=== PATIENT | male | born 1965 | race African-American/Black ===

== ENCOUNTER 2016-09-30 15:27 | Emergency (ER) | payer MEDICAID, OTHER ==
[~2016-09-30] VITALS: Ht 170.2 cm; Wt 104.0 kg
[~2016-09-30 15:27] MED LIST: INDO50CA PO; PRED20 PO
[2016-09-30 15:29] VITALS: BP 144/104; PULSE 71; RESP 17; TEMP 98; O2SAT 99
--- NOTE | 2016-09-30 16:31 | PD ---
HPI Chief Complaint: Pain: Acute or Chronic Time Seen by Provider: 16:30 Travel History International Travel<30 days: No Contact w/Intl Traveler<30days: No Traveled to known affect area: No PFSH Past Medical History Hx Anticoagulant Therapy: No Blood Disorders: No Heart Rhythm Problems: No Cancer: No Cardiac Catheterization: No Cardiovascular Problems: Yes High Cholesterol: No Congestive Heart Failure: No Cerebrovascular Accident: Yes Diabetes: No Diminished Hearing: No GERD: Yes Gout: Yes Genitourinary: No Hypertension: No Immune Disorder: No Implanted Vascular Access Dvce: No Musculoskeletal: No Neurologic: No Psychiatric: No Reproductive: No Respiratory: Yes Immunizations Current: Yes Myocardial Infarction: No Renal Failure: No Seizures: No Tetanus Vaccination: > 5 Years Influenza Vaccination: No ?: Not Past Surgical History Surgical History: No Previous Surgery Coronary Artery Bypass Graft: No Other Surgery: No Social History Alcohol Use: No Tobacco Use: No Substance Use: No Allergies-Medications (Allergen,Severity, Reaction): Coded Allergies: No Known Allergies (Verified , 09/30/16) Reported Meds & Prescriptions Reported Meds & Active Scripts Active Data Data Last Documented VS Vital Signs Date Time Temp Pulse Resp B/P Pulse Ox O2 Delivery O2 Flow Rate FiO2 09/30/16 15:29 98.0 71 17 144/104 99 Orders Ibuprofen (Motrin) (09/30/16 16:45) Prednisone (Deltasone) (09/30/16 16:45) Pantoprazole (Protonix) (09/30/16 16:45) Carolyn Abdi Sep 30, 2016 16:30
[2016-09-30] MEDS ORDERED: PRED20 PO (16:39)
[2016-09-30] MEDS ORDERED: ZANT300T PO (16:39)
[2016-09-30] MEDS ORDERED: MOBI15TA PO (16:39)
--- NOTE | 2016-09-30 16:39 | PD ---
HPI Chief Complaint: Pain: Acute or Chronic Time Seen by Provider: 16:34 Travel History International Travel<30 days: No Contact w/Intl Traveler<30days: No Traveled to known affect area: No History of Present Illness HPI 51-year-old male complains of left big toe pain. Patient states that the pain started 4 days ago. Patient states the pain is sharp pain localized to the face left big toe. Patient denies any pain radiation. Patient denies any injury. Patient has history of gout and has history of recurrent gout with left great toe pain in the past. Patient denies any fever chills. Patient denies any other injury. On a scale from 1-10 the pain is an 8. PFSH Past Medical History Hx Anticoagulant Therapy: No Blood Disorders: No Heart Rhythm Problems: No Cancer: No Cardiac Catheterization: No Cardiovascular Problems: Yes High Cholesterol: No Congestive Heart Failure: No Cerebrovascular Accident: Yes Diabetes: No Diminished Hearing: No GERD: Yes Gout: Yes Genitourinary: No Hypertension: No Immune Disorder: No Implanted Vascular Access Dvce: No Musculoskeletal: No Neurologic: No Psychiatric: No Reproductive: No Respiratory: Yes Immunizations Current: Yes Myocardial Infarction: No Renal Failure: No Seizures: No Tetanus Vaccination: > 5 Years Influenza Vaccination: No ?: Not Past Surgical History Surgical History: No Previous Surgery Coronary Artery Bypass Graft: No Other Surgery: No Social History Alcohol Use: No Tobacco Use: No Substance Use: No Allergies-Medications (Allergen,Severity, Reaction): Coded Allergies: No Known Allergies (Verified , 09/30/16) Reported Meds & Prescriptions Reported Meds & Active Scripts Active Review of Systems General / Constitutional: No: Fever Eyes: No: Visual changes HENT: No: Headaches Cardiovascular: No: Chest Pain or Discomfort Respiratory: No: Shortness of Breath Gastrointestinal: No: Abdominal Pain Genitourinary: No: Dysuria Musculoskeletal: Positive: Pain Skin: No Rash Neurologic: No: Weakness Psychiatric: No: Depression Endocrine: No: Polydipsia Hematologic/Lymphatic: No: Easy Bruising Physical Exam Narrative GENERAL: Well-nourished, well-developed patient. SKIN: Warm and dry. HEAD: Normocephalic. EYES: No scleral icterus. No injection or drainage. NECK: Supple, trachea midline. No JVD or lymphadenopathy. CARDIOVASCULAR: Regular rate and rhythm without murmurs, gallops, or rubs. RESPIRATORY: Breath sounds equal bilaterally. No accessory muscle use. GASTROINTESTINAL: Abdomen soft, non-tender, nondistended. MUSCULOSKELETAL: Moderate tenderness and palpation the MTP joint left great toe. Mild soft tissue swelling noted. No redness no heat. Sensory motor function distally intact. BACK: Nontender without obvious deformity. No CVA tenderness. Motor Data Data Last Documented VS Vital Signs Date Time Temp Pulse Resp B/P Pulse Ox O2 Delivery O2 Flow Rate FiO2 09/30/16 15:29 98.0 71 17 144/104 99 Orders Ibuprofen (Motrin) (09/30/16 16:45) Prednisone (Deltasone) (09/30/16 16:45) Pantoprazole (Protonix) (09/30/16 16:45) [facility] Medical Decision Making Medical Screen Exam Complete: Yes Emergency Medical Condition: Yes Differential Diagnosis Differential diagnosis including gouty arthritis, sprain, fracture, dislocation. Narrative Course 51-year-old male with left great toe pain. History of gout. Most likely gouty arthritis. Patient does not want IM injection. Motrin 600 mg by mouth. Prednisone 20 mg by mouth. Protonix 20 mg by mouth. Diagnosis Primary Impression: Acute gouty arthritis Patient Instructions: General Instructions Additional Instructions: Take medications as directed. Follow-up with personal physician. Return if persistent problem or worse. Med/Other Pt SpecificInfo: Prescription(s) given Scripts Ranitidine (Zantac)300 Mg Itc175 Mg PO DAILY #10 TAB Ref 0 Prov:Duane Juares MD 09/30/16 Prednisone 20 Mg Tab20 Mg PO BID #10 TAB Prov:Duane Juares MD 09/30/16 Meloxicam (Mobic)15 Mg Tab15 Mg PO DAILY #20 TAB Prov:Duane Juares MD 09/30/16 Disposition: 01 DISCHARGE HOME Condition: Stable Duane Juares MD Sep 30, 2016 16:39
[2016-09-30] MEDS ORDERED: PANTOPRAZOLE SOD 20 MG DELAYED RELEASE TAB PO ONE (16:45)
[2016-09-30] MEDS ORDERED: predniSONE 20 MG TAB PO ONE (16:45)
[2016-09-30] MEDS ORDERED: IBUPROFEN 600 MG TAB PO ONE (16:45)
== END 2016-09-30 17:38 | disposition home or self-care (01) ==
LOC: PHEFT 15:27
DX: M10.00 Idiopathic gout, unspecified site (principal)
CPT/HCPCS: 99283; J7512

== ENCOUNTER 2016-12-24 17:09 | Emergency (ER) | payer OTHER ==
[~2016-12-24] VITALS: Ht 167.6 cm; Wt 106.9 kg
[~2016-12-24 17:09] MED LIST changes: -INDO50CA PO; +MOBI15TA PO; +ZANT300T PO
[2016-12-24 17:20] VITALS: BP_SYST 164; BP_SYST 172; BP_DIAS 120; BP_DIAS 199; PULSE 95; RESP 16; TEMP 98.4; O2SAT 98
--- NOTE | 2016-12-24 18:12 | PD ---
HPI Chief Complaint: ENT Complaint Time Seen by Provider: 17:57 Travel History International Travel<30 days: No Contact w/Intl Traveler<30days: No Traveled to known affect area: No History of Present Illness HPI 51-year-old male with history of previous CVA, presents to the ER today because he states that the last 2-3 days he has been having nasal congestion, not feeling well, sinus pressure, headaches, and jaw pain which is worse on the left compared to the right although he has bilateral jaw pain. He states it hurts to open his mouth. He has also been having throat soreness. He denies any drooling, trouble swallowing, fevers, or any other symptoms. He does not know any sick contacts. He denies any injuries. Modifying Factors: None Associated Signs & Symptoms: Headaches, sinus pressure, jaw pain Risk Factors: None PFSH Past Medical History Hx Anticoagulant Therapy: No Blood Disorders: No Heart Rhythm Problems: No Cancer: No Cardiac Catheterization: No Cardiovascular Problems: Yes High Cholesterol: No Congestive Heart Failure: No Cerebrovascular Accident: Yes Diabetes: No Diminished Hearing: No GERD: Yes Gout: Yes Genitourinary: No Hypertension: No Immune Disorder: No Implanted Vascular Access Dvce: No Musculoskeletal: No Neurologic: No Psychiatric: No Reproductive: No Respiratory: Yes Immunizations Current: Yes Myocardial Infarction: No Renal Failure: No Seizures: No Tetanus Vaccination: > 5 Years Influenza Vaccination: No Past Surgical History Surgical History: No Previous Surgery Coronary Artery Bypass Graft: No Other Surgery: No Social History Alcohol Use: No Tobacco Use: No Substance Use: No Allergies-Medications (Allergen,Severity, Reaction): Coded Allergies: No Known Allergies (Verified , 12/24/16) Reported Meds & Prescriptions Reported Meds & Active Scripts Active No Active Prescriptions or Reported Medications Review of Systems Except as stated in HPI: all other systems reviewed are Neg Physical Exam Narrative GENERAL: Well-developed middle age -[place] male patient currently in moderate distress. Awake and oriented 3. SKIN: Focused skin assessment warm/dry. HEAD: Atraumatic. Normocephalic. Tenderness on palpation of the TMJ area more pronounced on the left than the right. EYES: Pupils equal and round. No scleral icterus. No injection or drainage. ENT: No nasal bleeding or discharge. Mucous membranes pink and moist. Mild pharyngeal erythema. No exudates. Tonsillar pillars are symmetrical. EARS: Bilateral pinnae and external canals appear within normal limits. Bilateral tympanic membranes without erythema, dullness or perforation. NECK: Trachea midline. No JVD. CARDIOVASCULAR: Regular rate and rhythm. No murmur appreciated. RESPIRATORY: No accessory muscle use. Clear to auscultation. Breath sounds equal bilaterally. GASTROINTESTINAL: Abdomen soft, non-tender, nondistended. Hepatic and splenic margins not palpable. MUSCULOSKELETAL: No obvious deformities. No clubbing. No cyanosis. No edema. NEUROLOGICAL: Awake and alert. No obvious cranial nerve deficits. Motor grossly within normal limits. Normal speech. PSYCHIATRIC: Appropriate mood and affect; insight and judgment normal. Data Data Last Documented VS Vital Signs Date Time Temp Pulse Resp B/P Pulse Ox O2 Delivery O2 Flow Rate FiO2 12/24/16 18:40 81 20 142/72 94 Room Air 12/24/16 17:20 98.4 Orders Group A Rapid Strep Screen (12/24/16 17:57) Influenzae A/B Antigen (12/24/16 17:57) Soft Tissue Neck (12/24/16 ) Facial Bones - Comp([id number]) (12/24/16 ) Strep Culture (Group A) (12/24/16 18:00) MDM Medical Decision Making Medical Screen Exam Complete: Yes Emergency Medical Condition: Yes Medical Record Reviewed: Yes Differential Diagnosis Jaw pain, headache, sinus pressuresinusitis versus TMJ versus jaw dislocation versus otitis media Narrative Course X-rays ordered for evaluation of mandibular/TMJ pain. Influenza and rapid strep negative. Physician Communication Physician Communication Case signed out to Dr. Wren at 7 PM pending x-rays. Scripts No Active Prescriptions or Reported Meds Condition: Stable Dasha tOt MD Dec 24, 2016 18:12
[2016-12-24 18:40] VITALS: BP 142/72; PULSE 81; RESP 20; O2SAT 94
[2016-12-24 19:15] VITALS: BP 150/106; PULSE 82; RESP 16; O2SAT 99
--- NOTE | 2016-12-24 19:23 | PD ---
Physical Exam Date Seen by Provider: Dec 24, 2016 Time Seen by Provider: 19:21 Narrative accepted in transfer of care from Dr Ott GENERAL: Well-developed well-nourished male in no acute distress no respiratory distress SKIN: Warm and dry. HEAD: Normocephalic. EYES: No scleral icterus. No injection or drainage. ENT: Mucous members moist airway is patent; bilateral frontal and maxillary sinus tenderness to percussion some; no malocclusion. NECK: Supple, trachea midline. No JVD or lymphadenopathy. CARDIOVASCULAR: Regular rate and rhythm without murmurs, gallops, or rubs. RESPIRATORY: Breath sounds equal bilaterally. No accessory muscle use. GASTROINTESTINAL: Abdomen soft, non-tender, nondistended. MUSCULOSKELETAL: No cyanosis, or edema. BACK: Nontender without obvious deformity. No CVA tenderness. Data Data Last Documented VS Vital Signs Date Time Temp Pulse Resp B/P Pulse Ox O2 Delivery O2 Flow Rate FiO2 12/24/16 20:22 82 17 160/124 98 Room Air 12/24/16 17:20 98.4 Orders Group A Rapid Strep Screen (12/24/16 17:57) Influenzae A/B Antigen (12/24/16 17:57) Soft Tissue Neck (12/24/16 ) Facial Bones - Comp([id number]) (12/24/16 ) Strep Culture (Group A) (12/24/16 18:00) Ibuprofen (Motrin) (12/24/16 20:00) Clonidine (Catapres) (12/24/16 20:30) MDM Medical Record Reviewed: Yes Supervised Visit with [facility]U: No Interpretation(s) Last Impressions Soft Tissue Neck X-Ray 12/24/16 0000 Signed Impressions: Service Date/Time: Saturday, December 24, 2016 18:45 - CONCLUSION: Radiographic appearance of the soft tissues of the neck is within normal limits. Cassius Lamas MD Facial Bones X-Ray 12/24/16 0000 Signed Impressions: Service Date/Time: Saturday, December 24, 2016 18:46 - CONCLUSION: 1. No facial fracture. No perceptible cortical destruction. 2. Numerous missing and/or broken teeth. 3. Left greater than right maxillary sinus disease suspected. I also believe there is bilateral sphenoid sinus disease. Cassius Lamas MD Differential Diagnosis accepted in transfer of care from Dr Ott; please refer to her dictation Narrative Course accepted in transfer of care from Dr Ott; for follow up of pending imaging of the mandible At 7:50 PM patient informed of imaging results in stable for outpatient management. At 8:22 PM at time of discharge patient obtain last vital signs prior to dispositioning the patient and noted patient to again have elevated blood pressure that was noted upon patient's initial arrival the blood pressure improved to a more normal range while in the emergency department; patient will be given clonidine 0.1 mg. Patient refusing any medication for elevated blood pressure she states every time he comes to the emergency department if becomes markedly elevated and his blood pressure normalizes as soon as he leaves emergency department. Patient states she was just seen by his primary care provider and his blood pressure is normal and he will follow-up with his primary care provider tomorrow did not take any blood pressure medication while he is here in the emergency department and no reporting of sudden onset worst ever headache visual disturbance chest pain palpitations shortness of breath or focal upper or lower extremity numbness tingling or weakness altered mentation altered speech or visual disturbance. Patient again offered to manage his blood pressure here in the emergency department to give him a dose of medication and that her writing for as needed clonidine patient again refuses this. Benefit of being on blood pressure medication versus risk for and/or in disease such as stroke [place] renal failure discussed with patient. Again patient refuses to take blood pressure medication. Review of medical records does indicate that when he visits the emergency department he does have quite elevated blood pressure. During his visit his blood pressure did fall into more normal range while resting comfortably. BP rechecked --remains very elevated again risks discussed and patient agrees to taking medication for elevated BP. @ 8:39 PM patient now refusing again to take any medication for blood pressure management. Patient will sign out AGAINST MEDICAL ADVICE. Diagnosis Primary Impression: Sinusitis Qualified Code: J01.90 - Acute sinusitis, recurrence not specified, unspecified location Additional Impression: HTN (hypertension) Qualified Code: I10 - Essential hypertension Referrals: Primary Care Physician call for appointment Patient Instructions: General Instructions Additional Instruction: Complete course of antibiotic as prescribed May use as tolerated Afrin nasal decongestion spray 1 spray to each near up to 2 times daily for up to 3 days however avoid ongoing use to avoid rebound congestion May use as tolerated acetaminophen/Tylenol every 4 hours for mild pain or for fever 100.4F or greater May use ibuprofen/Advil/Motrin every 6-8 hours as needed for pain associated with inflammation for fever 100.4F or greater May use [id number] Robitussin or Mucinex for congestion Follow-up with her primary care provider Return to the emergency department as needed Med/Other Pt SpecificInfo: Prescription(s) given Scripts Amoxicillin-Clavulanate (Augmentin)875-125 Mg Tab1 Tab PO BID 10 Days Ref 0 Prov:Lucina Wren MD 12/24/16 Disposition: 01 DISCHARGE HOME Condition: Stable Lucina Wren MD Dec 24, 2016 19:23
--- NOTE | 2016-12-24 19:24 | RADHPO ---
EXAM DATE/TIME: 12/24/2016 18:45 [facility] COMPARISON: No previous studies available for comparison. INDICATIONS : Sore throat. MEDICAL HISTORY : None. SURGICAL HISTORY : None. ENCOUNTER: Initial ACUITY: 1 day PAIN SCORE: 5/10 LOCATION: Bilateral neck FINDINGS: Two view examination of the soft tissues of the neck demonstrates the hypopharyngeal airway to have a grossly normal configuration. The trachea is midline. No radiopaque foreign bodies are seen. CONCLUSION: Radiographic appearance of the soft tissues of the neck is within normal limits. Cassius Lamas MD on December 24, 2016 at 19:22 Board Certified Radiologist. This report was verified electronically.
--- NOTE | 2016-12-24 19:34 | RADHPO ---
EXAM DATE/TIME: 12/24/2016 18:46 [facility] COMPARISON: No previous studies available for comparison. INDICATIONS : Unable to open mouth, jaw pain. MEDICAL HISTORY : None. SURGICAL HISTORY : None. ENCOUNTER: Initial ACUITY: 2 days PAIN SCORE: 5/10 LOCATION: Bilateral facial FINDINGS: No facial fracture demonstrated. Patient has numerous missing and broken teeth. No malalignment demon strated of the temporomandibular joints. There is partial opacification of the bilateral maxillary sinuses, left worse than right, and bilater al sphenoid air cells. Right frontal air cells are hypoplastic. CONCLUSION: 1. No facial fracture. No perceptible cortical destruction. 2. Numerous missing and/or broken teeth. 3. Left greater than right maxillary sinus disease suspected. I also believe there is bilateral sphen oid sinus disease. Cassius Lamas MD on December 24, 2016 at 19:30 Board Certified Radiologist. This report was verified electronically.
[2016-12-24] MEDS ORDERED: AUGM875T3 PO (19:53)
[2016-12-24] MEDS ORDERED: IBUPROFEN 800 MG TAB PO ONE (20:00)
[2016-12-24 20:10] VITALS: BP 177/124; PULSE 88; RESP 16; O2SAT 98
[2016-12-24 20:22] VITALS: BP 160/124; PULSE 82; RESP 17; O2SAT 98
[2016-12-24] MEDS ORDERED: cloNIDine HCL 0.1 MG TAB PO ONE (20:30)
[2016-12-24 20:43] VITALS: BP 195/124
== END 2016-12-24 20:47 | disposition left against medical advice (07) ==
LOC: PHED 17:09
DX: J01.90 Acute sinusitis, unspecified (principal); Z86.73 Personal history of transient ischemic attack (TIA), and cerebral infarction without residual deficits; K21.9 Gastro-esophageal reflux disease without esophagitis; R03.0 Elevated blood-pressure reading, without diagnosis of hypertension
CPT/HCPCS: 70150; 70360; 87081; 87804; 87880; 99284

== ENCOUNTER 2016-12-27 21:35 | Emergency (ER) | payer OTHER ==
[~2016-12-27] VITALS: Ht 167.6 cm; Wt 106.3 kg
[~2016-12-27 21:35] MED LIST changes: +AUGM875T3 PO; -MOBI15TA PO; -PRED20 PO; -ZANT300T PO
[2016-12-27 21:42] VITALS: BP 170/133; PULSE 80; RESP 18; TEMP 97.9; O2SAT 96
[2016-12-27 22:30] VITALS: BP 173/118; PULSE 77; RESP 18; O2SAT 98
[2016-12-27] MEDS ORDERED: HYDROCHLOROTHIAZIDE 25 MG TAB PO ONE (22:45)
--- NOTE | 2016-12-27 22:45 | PD ---
HPI . Headache Chief Complaint: Abnormal Results Time Seen by Provider: 22:27 Travel History International Travel<30 days: No Contact w/Intl Traveler<30days: No Traveled to known affect area: No History of Present Illness HPI Patient presents stating that his blood pressure is elevated and that he has a headache and that he would like to get started on some blood pressure medication. The patient was seen here 2 days ago with similar symptoms. He was found to have an elevated blood pressure and was given a dose of clonidine. Dr. Wren plan to prescribe him blood pressure medication but the patient refused stating that he was see his doctor. The patient reports that his blood pressure is always elevated when he comes to the emergency department but is normal when he sees his doctor in the office. He reports a recent checkup with a normal blood pressure. However, as continued to have a headache. He would now like to start on some blood pressure medication. PFSH Past Medical History Hx Anticoagulant Therapy: No Blood Disorders: No Heart Rhythm Problems: No Cancer: No Cardiac Catheterization: No Cardiovascular Problems: Yes High Cholesterol: No Congestive Heart Failure: No Cerebrovascular Accident: Yes Diabetes: No Diminished Hearing: No GERD: Yes Gout: Yes Genitourinary: No Heparin Induced Thrombocytopen: No Hypertension: No Immune Disorder: No Implanted Vascular Access Dvce: No Musculoskeletal: No Neurologic: No Psychiatric: No Reproductive: No Respiratory: Yes Immunizations Current: Yes Myocardial Infarction: No Renal Failure: No Seizures: No Tetanus Vaccination: > 5 Years Influenza Vaccination: No ?: Not Past Surgical History Coronary Artery Bypass Graft: No Other Surgery: No Family History Family Myocardial Infarction: Yes Social History Alcohol Use: No Tobacco Use: No Substance Use: No Allergies-Medications (Allergen,Severity, Reaction): Coded Allergies: No Known Allergies (Verified , 12/27/16) Reported Meds & Prescriptions Reported Meds & Active Scripts Active Augmentin (Amoxicillin-Clavulanate) 875-125 Mg Tab 1 Tab PO BID 10 Days Review of Systems Except as stated in HPI: all other systems reviewed are Neg HENT: Positive: Headaches Cardiovascular: No: Chest Pain or Discomfort Respiratory: No: Shortness of Breath Gastrointestinal: No: Nausea, Vomiting Musculoskeletal: No: Edema Physical Exam Narrative GENERAL: Awake and alert and in no acute distress. SKIN: Warm and dry. HEAD: Atraumatic. Normocephalic. Positive scalp tenderness. EYES: Pupils equal and round. Extraocular movements are intact. NECK: Trachea midline. Neck is supple. CARDIOVASCULAR: Regular rate and rhythm. RESPIRATORY: No accessory muscle use. MUSCULOSKELETAL: No obvious deformities. No edema. NEUROLOGICAL: Awake and alert. No obvious cranial nerve deficits. Motor grossly within normal limits. Normal speech. PSYCHIATRIC: Appropriate mood and affect; insight and judgment normal. Data Data Last Documented VS Vital Signs Date Time Temp Pulse Resp B/P Pulse Ox O2 Delivery O2 Flow Rate FiO2 12/27/16 22:30 77 18 173/118 98 Room Air 12/27/16 21:42 97.9 Orders Hydrochlorothiazide (Hydrodiuril) (12/27/16 22:45) [facility] Medical Decision Making Medical Screen Exam Complete: Yes Emergency Medical Condition: Yes Medical Record Reviewed: Yes (the patient was seen here 2 days ago for headache and was noted to have elevated blood pressure.) Differential Diagnosis Differential diagnosis of headache includes but is not limited to migraine, muscle contraction headache, brain tumor, brain bleed Narrative Course Patient presents complaining with continued headache and elevated blood pressure for the last 2 days. He would like to start on blood pressure medication. He does not have any signs or symptoms suggestive of hypertensive emergency as chest pain, encephalopathy, acute peripheral edema, shortness of breath. His blood pressure is elevated again tonight. I will start him on HCTZ. Diagnosis Primary Impression: Elevated blood pressure reading Patient Instructions: General Instructions, Hypertension (DC) Med/Other Pt SpecificInfo: Prescription(s) given Scripts Hydrochlorothiazide 25 Mg Tab25 Mg PO DAILY #30 TAB Ref 0 Prov:Yuridia Parker MD 12/27/16 Disposition: 01 DISCHARGE HOME Condition: Stable Yuridia Parker MD Dec 27, 2016 22:45
[2016-12-27] MEDS ORDERED: HYDR25TA5 PO (22:53)
[2016-12-27 23:17] VITALS: BP 174/102; PULSE 72; RESP 18; O2SAT 98
== END 2016-12-27 23:24 | disposition home or self-care (01) ==
LOC: PHED 21:35
DX: R03.0 Elevated blood-pressure reading, without diagnosis of hypertension (principal)
CPT/HCPCS: 99283

== ENCOUNTER 2017-02-10 15:02 | Observation (INO) | payer OTHER ==
[2017-02-10] VITALS (12 sets, daily range): BP systolic 128–184; BP diastolic 83–122; PULSE 62–91; RESP 15–20; TEMP 97.8–98.6; O2SAT 94–100
[~2017-02-10] VITALS: Ht 167.6 cm; Wt 104.5 kg
[~2017-02-10 15:02] MED LIST changes: +HYDR25TA5 PO
--- NOTE | 2017-02-10 15:20 | PD ---
HPI Chief Complaint: Chest Pain Time Seen by Provider: 15:10 Travel History International Travel<30 days: No Contact w/Intl Traveler<30days: No Traveled to known affect area: No History of Present Illness HPI This is a 51-year-old male with history of hypertension and presents for evaluation of chest pain. Symptoms initially started 2 days ago. Pain is a sharp substernal pain which has been constant since yesterday evening. He reports that he was unable to sleep all night because of the pain. The pain is worse with exertion and also with deep inspiration. He went to latter day today and the pain is persistent which prompted evaluation. He denies cough or congestion, shortness of breath, recent travel or recent surgery, history of DVT or PE, recent leg swelling. No personal history of coronary artery disease. He does have hypertension and he notes that his blood pressure has been elevated over the past few months. His primary care physician is Dr. Melchor. No other complaints. PFSH Past Medical History Hx Anticoagulant Therapy: No Blood Disorders: No Heart Rhythm Problems: No Cancer: No Cardiac Catheterization: No Cardiovascular Problems: Yes High Cholesterol: No Congestive Heart Failure: No Cerebrovascular Accident: Yes Diabetes: No Diminished Hearing: No GERD: Yes Gout: Yes Genitourinary: No Heparin Induced Thrombocytopen: No Hypertension: No Immune Disorder: No Implanted Vascular Access Dvce: No Musculoskeletal: No Neurologic: No Psychiatric: No Reproductive: No Respiratory: Yes Immunizations Current: Yes Myocardial Infarction: No Renal Failure: No Seizures: No Past Surgical History Coronary Artery Bypass Graft: No Other Surgery: No Social History Alcohol Use: No Tobacco Use: No Substance Use: No Allergies-Medications (Allergen,Severity, Reaction): Coded Allergies: No Known Allergies (Verified , 12/27/16) Reported Meds & Prescriptions Reported Meds & Active Scripts Active Hydrochlorothiazide 25 Mg Tab 25 Mg PO DAILY Augmentin (Amoxicillin-Clavulanate) 875-125 Mg Tab 1 Tab PO BID 10 Days Review of Systems Except as stated in HPI: all other systems reviewed are Neg Physical Exam Narrative GENERAL: Pleasant well-developed well-nourished male in no acute distress. SKIN: Warm and dry. HEAD: Atraumatic. Normocephalic. EYES: Pupils equal and round. No scleral icterus. No injection or drainage. ENT: No nasal bleeding or discharge. Mucous membranes pink and moist. NECK: Trachea midline. No JVD. CARDIOVASCULAR: Regular rate and rhythm. No murmur appreciated. RESPIRATORY: No accessory muscle use. Clear to auscultation. Breath sounds equal bilaterally. GASTROINTESTINAL: Abdomen soft, non-tender, nondistended. Hepatic and splenic margins not palpable. MUSCULOSKELETAL: No obvious deformities. No clubbing. No cyanosis. No edema. NEUROLOGICAL: Awake and alert. No obvious cranial nerve deficits. Motor grossly within normal limits. Normal speech. PSYCHIATRIC: Appropriate mood and affect; insight and judgment normal. Data Data Last Documented VS Vital Signs Date Time Temp Pulse Resp B/P Pulse Ox O2 Delivery O2 Flow Rate FiO2 02/10/17 16:26 76 16 184/107 100 Nasal Cannula 2 02/10/17 15:23 98.6 Orders Electrocardiogram (02/10/17 ) Basic Metabolic Panel (Bmp) (02/10/17 15:17) Ckmb (Isoenzyme) Profile (02/10/17 15:17) Complete Blood Count With Diff (02/10/17 15:17) D-Dimer (02/10/17 15:17) Magnesium (Mg) (02/10/17 15:17) Prothrombin Time / Inr (Pt) (02/10/17 15:17) Act Partial Throm Time (Ptt) (02/10/17 15:17) Troponin I (02/10/17 15:17) Chest, Single Ap (02/10/17 15:17) Ecg Monitoring (02/10/17 15:17) Bilateral Bp Monitoring (02/10/17 15:17) Iv Access Insert/Monitor (02/10/17 15:17) Oximetry (02/10/17 15:17) Oxygen Administration (02/10/17 15:17) Aspirin Chew (Aspirin Chew) (02/10/17 15:30) Sodium Chloride 0.9% Flush (Ns Flush) (02/10/17 15:30) Nitroglycerin Sl (Nitrostat Sl) (02/10/17 15:30) CKMB (02/10/17 15:30) CKMB% (02/10/17 15:30) Labs Laboratory Tests Test 02/10/17 15:30 White Blood Count 3.8 TH/MM3 Red Blood Count 4.78 MIL/MM3 Hemoglobin 13.8 GM/DL Hematocrit 41.8 % Mean Corpuscular Volume 87.4 FL Mean Corpuscular Hemoglobin 28.9 PG Mean Corpuscular Hemoglobin 33.0 % Concent Red Cell Distribution Width 15.0 % Platelet Count 136 TH/MM3 Mean Platelet Volume 9.3 FL Neutrophils (%) (Auto) 53.9 % Lymphocytes (%) (Auto) 39.3 % Monocytes (%) (Auto) 4.7 % Eosinophils (%) (Auto) 1.3 % Basophils (%) (Auto) 0.8 % Neutrophils # (Auto) 2.1 TH/MM3 Lymphocytes # (Auto) 1.5 TH/MM3 Monocytes # (Auto) 0.2 TH/MM3 Eosinophils # (Auto) 0.1 TH/MM3 Basophils # (Auto) 0.0 TH/MM3 CBC Comment DIFF FINAL Differential Comment Prothrombin Time 10.8 SEC Prothromb Time International 1.0 RATIO Ratio Activated Partial 24.0 SEC Thromboplast Time D-Dimer Quantitative (PE/DVT) 0.37 MG/L FEU Sodium Level 143 MEQ/L Potassium Level 4.3 MEQ/L Chloride Level 108 MEQ/L Carbon Dioxide Level 28.1 MEQ/L Anion Gap 7 MEQ/L Blood Urea Nitrogen 13 MG/DL Creatinine 1.67 MG/DL Estimat Glomerular Filtration 53 ML/MIN Rate Random Glucose 87 MG/DL Calcium Level 9.5 MG/DL Magnesium Level 2.3 MG/DL Total Creatine Kinase 789 U/L Creatine Kinase MB 1.5 NG/ML Creatine Kinase MB % 0.2 % Troponin I LESS THAN 0.02 NG/ML MDM Medical Decision Making Medical Screen Exam Complete: Yes Emergency Medical Condition: Yes Medical Record Reviewed: Yes Interpretation(s) EKG sinus rhythm, T-wave inversions in V5 and 6. Differential Diagnosis ACS, costochondritis, pneumothorax, hemothorax, pericarditis, myocarditis, pulmonary embolism Narrative Course 51-year-old male presents with 2 days of sharp chest pain which is worse with movement and inspiration. Twelve-lead EKG was obtained. The patient states an ECG monitor and pulse oximetry. Plan is for basic lab work, chest x-ray. He begin an aspirin, nitroglycerin. He'll be monitored closely. The patient's laboratory imaging studies have been reviewed. Initial troponin is negative. Total CK is 789 with a normal MB percentage. At this point in time the plan would be to admit the patient to the chest pain center for serial cardiac enzymes and rule out purposes. Discussed with the patient who is agreeable. Procedures EKG Prior to Arrival: Yes Diagnosis Primary Impression: Chest pain Qualified Code: R07.9 - Chest pain, unspecified type Admitting Information Admitting Physician Requests: Augustine Harrison Feb 10, 2017 15:19
[2017-02-10] MEDS ORDERED: ASPIRIN 81 MG CHEW TAB PO ONE (15:30)
[2017-02-10] MEDS ORDERED: SODIUM CHLORIDE 0.9% FLUSH 10 ML FLUSH IVF PRN (15:30)
[2017-02-10] MEDS ORDERED: NITROGLYCERIN 0.4 MG SL 25 TABS/BTL SL ONE (15:30)
--- NOTE | 2017-02-10 15:35 | RADRPT ---
EXAM DATE/TIME: 02/10/2017 15:11 [facility] COMPARISON: CHEST SINGLE AP, July 06, 2015, 22:29. INDICATIONS : Chest pain. MEDICAL HISTORY : None. SURGICAL HISTORY : None. ENCOUNTER: Initial ACUITY: 1 day PAIN SCORE: 0/10 LOCATION: Bilateral chest FINDINGS: A single view of the chest demonstrates the lungs to be symmetrically aerated without evidence of mas s, infiltrate or effusion. The cardiomediastinal contours are unremarkable. Osseous structures are intact. CONCLUSION: No acute disease. Syed Wilcox MD on February 10, 2017 at 15:33 Board Certified Radiologist. This report was verified electronically.
[2017-02-10 15:45] LABS: AUTOMATED NEUTROPHIL # 2.1 TH/MM3 (1.8-7.7); BASOPHIL % 0.8 % (0.0-2.0); EOSINOPHIL # 0.1 TH/MM3 (0-0.4); EOSINOPHIL % 1.3 % (0.0-4.0); HEMATOCRIT 41.8 % (39.0-51.0); HEMO FLAGS DIFF FINAL; LYMPH % 39.3 % (9.0-44.0); LYMPHOCYTE # 1.5 TH/MM3 (1.0-4.8); MEAN CELL VOLUME 87.4 FL (80.0-100.0); MEAN CORPUSCULAR HEMOGLOBIN 28.9 PG (27.0-34.0); MONO % 4.7 % (0.0-8.0); NEUT % 53.9 % (16.0-70.0); PLATELET COUNT 136 TH/MM3 (150-450); RED BLOOD COUNT 4.78 MIL/MM3 (4.50-5.90); WHITE BLOOD COUNT 3.8 TH/MM3 (4.0-11.0)
[2017-02-10 15:56] LABS: PROTHROMBIN TIME - PATIENT 10.8 SEC (9.8-11.6)
[2017-02-10 16:35] LABS: ANION GAP 7 MEQ/L (5-15); BICARBONATE 28.1 MEQ/L (21.0-32.0); BLOOD UREA NITROGEN 13 MG/DL (7-18); CHLORIDE 108 MEQ/L (98-107); CREATINE KINASE 789 U/L (39-308); GLOMERULAR FILTRATION RATE 53 ML/MIN (>89); MAGNESIUM 2.3 MG/DL (1.5-2.5); SODIUM (NA) 143 MEQ/L (136-145)
[2017-02-10 16:37] LABS: POTASSIUM 4.3 MEQ/L (3.5-5.1)
[2017-02-10 16:49] LABS: CKMB 1.5 NG/ML (0.5-3.6)
[2017-02-10] MEDS ORDERED: ACETAMINOPHEN 500 MG CPLT PO PRN (17:00)
[2017-02-10] MEDS ORDERED: ONDANSETRON HCL 4 MG/2 ML VIAL IV PRN (17:00)
[2017-02-10] MEDS ORDERED: SODIUM CHLORIDE 0.9% FLUSH 10 ML FLUSH IV FLUSH PRN (17:00)
[2017-02-10] MEDS ORDERED: AMLO5TAB2 PO (19:12)
[2017-02-10 19:30] LABS: CREATINE KINASE 712 U/L (39-308)
[2017-02-10 19:44] LABS: CKMB 1.4 NG/ML (0.5-3.6)
[2017-02-10] MEDS ORDERED: amLODIPine BESYLATE 5 MG TAB PO ONE (20:30)
[2017-02-10] MEDS: SODIUM CHLORIDE 0.9% FLUSH 10 ML FLUSH IV FLUSH SCH (20:59)
--- NOTE | 2017-02-10 21:29 | EKG ---
Date Performed: 02/10/2017 Time Performed: 18:46:30 PTAGE: 51 years EKG: Sinus rhythm MINIMAL VOLTAGE CRITERIA FOR LVH, CONSIDER NORMAL VARIANT NONSPECIFIC T-WAVE ABNORMALITY BORDERLINE ECG PREVIOUS TRACING : 02/10/2017 15.18 No significant change from previous tracing noted. DOCTOR: Tyson Cantrell Interpretating Date/Time 02/10/2017 21:28:42
[2017-02-10] MEDS ORDERED: hydrALAZINE HCL 20 MG/ML VIAL IV PUSH ONE (21:30)
--- NOTE | 2017-02-10 21:34 | EKG ---
Date Performed: 02/10/2017 Time Performed: 15:18:07 PTAGE: 51 years EKG: Sinus rhythm POSSIBLE LEFT ATRIAL ENLARGEMENT NONSPECIFIC T-WAVE ABNORMALITY ABNORMAL ECG PREVIOUS TRACING : 07/06/2015 23.06 No significant change from previous tracing noted. DOCTOR: Tyson Cantrell Interpretating Date/Time 02/10/2017 21:33:16
[2017-02-10 22:27] LABS: CREATINE KINASE 676 U/L (39-308)
[2017-02-10 22:40] LABS: CKMB 1.3 NG/ML (0.5-3.6)
[2017-02-10] MEDS ORDERED: cloNIDine HCL 0.1 MG TAB PO PRN (23:45)
[2017-02-10] MEDS ORDERED: ACETAMINOPHEN/HYDROcodone 325 MG/7.5 MG TAB PO PRN (23:45)
[2017-02-11] VITALS (7 sets, daily range): BP systolic 135–155; BP diastolic 96–102; PULSE 68–80; RESP 20; TEMP 97.6–98.7; O2SAT 97–98
[2017-02-11] MEDS ORDERED: SODIUM CHLOR 0.9% 1000 ML INJ 1,000 ML IV ONE (08:10)
--- NOTE | 2017-02-11 08:18 | HHI.HP ---
[facility] Primary Care Physician Lyle Melchor M.D. Chief Complaint Chest pain History of Present Illness Is a 51-year-old male that presents to ED via private vehicle complaining of a constant chest discomfort for 2 days. Hurts more with movement. Tried nothing at home to help with the discomfort. Mild shortness of breath. Mild nausea. No diaphoresis. Has not had any like this before. Believes he may have stress test in the past. I reviewed his records. He had a nonischemic chemical stress test in 2013 and 2009. Review of Systems General: Patient denies fevers, chills recent, and recent travel HEENT: Patient denies headache, sore throat, difficulty swallowing. Cardiovascular: Has the chest discomfort as mentioned above. Denies sensation of heart beating rapidly or irregularly. No syncope. Denies diaphoresis. Respiratory: Mild shortness of breath. Denies inspirational chest discomfort. Denies coughing wheezing or hemoptysis. GI: Mild nausea. Patient denies vomiting, diarrhea, abdominal pain, bloody stools. Musculoskeletal: Patient denies joint pain or edema. Denies calf pain or edema. Neurovascular: Patient denies numbness, tingling, weakness in extremities. Denies headache. Endocrine: Denies polyuria and polydipsia. Hematologic: Denies easy bruising. Skin: Denies rash or itching. Past Family Social History Allergies: Coded Allergies: No Known Allergies (Verified , 12/27/16) Past Medical History Hypertension. Denies hyperlipidemia, diabetes, and known CAD. Past Surgical History Noncontributory. Reported Medications Reported Meds & Active Scripts Active Hydrochlorothiazide 25 Mg Tab 25 Mg PO DAILY Augmentin (Amoxicillin-Clavulanate) 875-125 Mg Tab 1 Tab PO BID 10 Days Reported Amlodipine (Amlodipine Besylate) 5 Mg Tab 5 Mg PO DAILY Active Ordered Medications Current Medications Medications (Trade) Dose Ordered Sig/Flo Route Start Time Stop Time Status Last Admin (NS Flush) 2 ml UNSCH PRN IV FLUSH 02/10/17 17:00 (NS Flush) 2 ml BID IV FLUSH 02/10/17 21:00 02/10/17 20:59 (Tylenol) 500 mg Q4H PRN PO 02/10/17 17:00 02/10/17 22:00 (Zofran Inj) 4 mg Q6H PRN IV 02/10/17 17:00 (Wendel 7.5-325 Mg) 1 tab Q6H PRN PO 02/10/17 23:45 02/11/17 00:03 (Catapres) 0.1 mg Q4H PRN PO 02/10/17 23:45 (Norvasc) 5 mg DAILY PO 02/11/17 09:00 Family History Denies family history of CAD. Social History He is a nonsmoker. Denies alcohol or illicit drugs. Physical Exam Vital Signs Vital Signs Date Time Temp Pulse Resp B/P Pulse Ox O2 Delivery O2 Flow Rate FiO2 02/11/17 07:21 98.7 79 20 146/101 02/11/17 04:37 74 02/11/17 04:34 97.9 68 20 135/96 97 02/11/17 00:00 80 02/10/17 23:09 91 20 141/88 98 02/10/17 22:00 82 20 128/83 97 Room Air 02/10/17 21:45 88 20 135/86 97 Room Air 02/10/17 21:26 72 18 177/122 97 Room Air 02/10/17 20:10 62 18 161/117 98 Room Air 02/10/17 19:30 94 02/10/17 18:41 67 16 162/108 100 Nasal Cannula 2 02/10/17 17:36 64 16 155/110 97 Nasal Cannula 2 02/10/17 16:26 76 16 184/107 100 Nasal Cannula 2 02/10/17 15:28 100 Nasal Cannula 2 02/10/17 15:28 100 Nasal Cannula 2 02/10/17 15:23 98.6 82 16 157/111 100 02/10/17 15:04 97.8 76 15 164/114 99 Physical Exam GENERAL: This is a well-nourished, well-developed patient, in no apparent distress. Patient speaks in clear complete sentences. Patient is pleasant. HEENT: Head is atraumatic and normocephalic. Neck is supple without lymphadenopathy and trachea is midline. No JVD or carotid bruits. CARDIOVASCULAR: Regular rate and rhythm without murmurs, gallops, or rubs. RESPIRATORY: Clear to auscultation. Breath sounds equal bilaterally. No wheezes , rales, or rhonchi. Chest wall is tender, palpating the area worsens his symptoms. Twisting of the torso worsens the symptoms. No use of accessory muscles. GASTROINTESTINAL: Abdomen is nontender, nondistended. Abdomen soft. No obvious pulsatile mass or bruit. No CVA tenderness. Strong femoral pulses bilaterally. Normal bowel sounds in all quadrants. MUSCULOSKELETAL: Patient is moving upper and lower extremities freely. No calf tenderness or edema, no Homans sign. Strong pulses in upper and lower extremities. NEUROLOGICAL: Patient is alert and oriented. Cranial nerves 2-12 are grossly intact. No focal deficits and speech is clear. SKIN: No rash and turgor is normal. Laboratory Laboratory Tests Test 02/10/17 02/10/17 02/10/17 15:30 18:35 21:30 White Blood Count 3.8 Red Blood Count 4.78 Hemoglobin 13.8 Hematocrit 41.8 Mean Corpuscular Volume 87.4 Mean Corpuscular Hemoglobin 28.9 Mean Corpuscular Hemoglobin 33.0 Concent Red Cell Distribution Width 15.0 Platelet Count 136 Mean Platelet Volume 9.3 Neutrophils (%) (Auto) 53.9 Lymphocytes (%) (Auto) 39.3 Monocytes (%) (Auto) 4.7 Eosinophils (%) (Auto) 1.3 Basophils (%) (Auto) 0.8 Neutrophils # (Auto) 2.1 Lymphocytes # (Auto) 1.5 Monocytes # (Auto) 0.2 Eosinophils # (Auto) 0.1 Basophils # (Auto) 0.0 CBC Comment DIFF FINAL Differential Comment Prothrombin Time 10.8 Prothromb Time International 1.0 Ratio Activated Partial 24.0 Thromboplast Time D-Dimer Quantitative (PE/DVT) 0.37 Sodium Level 143 Potassium Level 4.3 Chloride Level 108 Carbon Dioxide Level 28.1 Anion Gap 7 Blood Urea Nitrogen 13 Creatinine 1.67 Estimat Glomerular Filtration 53 Rate Random Glucose 87 Calcium Level 9.5 Magnesium Level 2.3 Total Creatine Kinase 789 712 676 Creatine Kinase MB 1.5 1.4 1.3 Creatine Kinase MB % 0.2 0.2 0.2 Troponin I LESS THAN 0.02 LESS THAN 0.02 LESS THAN 0.02 Result Diagram: 02/10/17 1530 02/10/17 1530 Imaging Last 24 hours Impressions Chest X-Ray 02/10/17 1517 Signed Impressions: Service Date/Time: Friday, February 10, 2017 15:11 - CONCLUSION: No acute disease. Syed F. Tocci, MD Course EKGs have sinus rhythm with nonspecific T-wave changes. Assessment and Plan Assessment and Plan * Atypical chest pain: Patient has had serial cardiac enzymes and EKGs for ruling out purposes. He will be seen by Dr. Celaya cardiology in the chest pain center and at that time further plan will be intermittent. We'll give analgesia for his discomfort. We'll give IV fluids. He will need to follow-up with his PCP. * Hypertension: Continue medication. Patient stable at this time. He is agreeable to this plan. Dani Mast Feb 11, 2017 08:17
[2017-02-11] MEDS: SODIUM CHLORIDE 0.9% FLUSH 10 ML FLUSH IV FLUSH SCH (08:29)
[2017-02-11] MEDS ORDERED: MORPHINE SULFATE 4 MG/ML INJ IM ONE (08:30)
[2017-02-11] MEDS ORDERED: MORPHINE SULFATE 4 MG/ML INJ IV PUSH ONE (08:30)
[2017-02-11] MEDS ORDERED: amLODIPine BESYLATE 5 MG TAB PO SCH (09:00)
[2017-02-11] MEDS ORDERED: REGADENOSON INJ 0.4 MG/5 ML SYR ONE (14:14)
--- NOTE | 2017-02-11 15:27 | RADRPT ---
EXAM DATE/TIME: 02/11/2017 11:57 [facility] COMPARISON: MYOCARDIAL PERF PHARM SPECT, GATED W/EF, February 02, 2014, 10:41. INDICATIONS : Chest pain for 2 days. Angina. DOSE: 25.5 mCi Tc99m Myoview at stress. 8.1 mCi Tc99m Myoview at rest. 0.4 mg Lexiscan STRESS SYMPTOMS: Chest pressure and headache. EJECTION FRACTION: 45% MEDICAL HISTORY : Hypertension. SURGICAL HISTORY : None. ENCOUNTER: Initial ACUITY: 2 days PAIN SCALE: 5/10 LOCATION: Substernal chest TECHNIQUE: The patient underwent pharmacologic stress with infusion of prescribed dose. Continuous ECG tracing was monitored during stress. Gated SPECT imaging was performed after stress and conventional SPECT i maging was performed at rest. The examination was performed on a SPECT/CT scanner, both attenuation and non-corrected datasets were reviewed. FINDINGS: DISTRIBUTION: The maximum perfused segment at stress is in the anterolateral wall. PERFUSION STUDY: The pattern of perfusion at stress is within normal limits. GATED STUDY: There is intact wall motion and thickening without hypokinetic or dyskinetic segments. CONCLUSION: No reversible defects observed to suggest acute ischemia. RISK CATEGORY: Low Boo Bui Jr., MD on February 11, 2017 at 15:24 Board Certified Radiologist. This report was verified electronically.
--- NOTE | 2017-02-11 15:43 | HHI.DCPOC ---
Discharge Care Plan Diagnosis: (1) Chest pain, atypical (2) HTN (hypertension) Goals to Promote Your Health * To prevent worsening of your condition and complications * To maintain your health at the optimal level Directions to Meet Your Goals Take your medications as prescribed Follow your dietary instruction Follow activity as directed Keep your appointments as scheduled Take your immunizations and boosters as scheduled If your symptoms worsen call your PCP, if no PCP go to Urgent Care Center or Emergency Room Smoking is Dangerous to Your Health. Avoid second hand smoke Call the 24-hour hour crisis hotline for domestic abuse at Dani Mast Feb 11, 2017 15:43
[2017-02-11] MEDS ORDERED: IBUPROFEN 600 MG TAB PO ONE (16:00)
--- NOTE | 2017-02-12 12:20 | TR ---
Date Performed: 02/11/2017 Time Performed: 13:11:05 DOCTOR: Shanita Celaya DRUG LIST: CLINICAL HISTORY: REASON FOR TEST: REASON FOR ENDING: OBSERVATION: CONCLUSION: ATTEMPTED [place] PROTOCOL NUC ETT. NO CP. TEST STOPPED PRIOR TO REACHING GOAL HR SECO NDARY TO SOB AND LEG FATIGUE.Maximum CF=621 Max HR Achieved=76.0% Maximum LE=566/100 Total Exercise T jack=5:28 COMMENTS:
--- NOTE | 2017-02-12 12:20 | TR ---
Date Performed: 02/11/2017 Time Performed: 13:54:13 DOCTOR: Shanita Celaya DRUG LIST: CLINICAL HISTORY: CHEST DISCOMFORT REASON FOR TEST: REASON FOR ENDING: OBSERVATION: CONCLUSION: Lexiscan stress test was performed under standard four minute protocol. Radionuclid e was injected one minute prior to ending the test. No electrocardiographic abormalities were present to suggest ischemia. Nuclear imaging and interpretation are pending. COMMENTS:
--- NOTE | 2017-02-12 12:25 | EKG ---
Date Performed: 02/10/2017 Time Performed: 23:17:52 PTAGE: 51 years EKG: Sinus rhythm POSSIBLE LEFT ATRIAL ENLARGEMENT POSSIBLE LEFT VENTRICULAR HYPERTROPHY NONSPECIFIC T-WAVE ABNORMALIT Y ABNORMAL ECG Since PREVIOUS TRACING , no significant change noted PREVIOUS TRACIN02/10/2017 18.46 DOCTOR: Shanita Celaya Interpretating Date/Time 02/12/2017 12:24:06
[2017-02-12] MEDS ORDERED: TIZA4CAP3 PO (18:44)
== END 2017-02-11 19:08 | disposition home or self-care (01) ==
LOC: NEPE 15:02 → NEDA 16:56 → NEPGCP 22:48
DX: R07.89 Other chest pain (principal); R06.02 Shortness of breath; R07.2 Precordial pain; I20.9 Angina pectoris, unspecified; R51 Headache; R94.31 Abnormal electrocardiogram [ECG] [EKG]; R11.0 Nausea; I10 Essential (primary) hypertension; K21.9 Gastro-esophageal reflux disease without esophagitis; Z79.899 Other long term (current) drug therapy; Z86.73 Personal history of transient ischemic attack (TIA), and cerebral infarction without residual deficits
CPT/HCPCS: 71010; 78452; 80048; 82550; 82552; 83735; 84484; 85025; 85379; 85610; 85730; 93005; 93017; 99285; A9502; G0378; J0360; J2270; J2785; J7030

== ENCOUNTER 2017-02-12 17:29 | Emergency (ER) | payer OTHER ==
[~2017-02-12] VITALS: Ht 165.1 cm; Wt 104.3 kg
[~2017-02-12 17:29] MED LIST changes: +AMLO5TAB2 PO; -AUGM875T3 PO; -HYDR25TA5 PO
[2017-02-12 17:34] VITALS: BP 147/103; PULSE 67; RESP 16; TEMP 98.3; O2SAT 98
[2017-02-12] MEDS ORDERED: TIZA4CAP3 PO (18:44)
[2017-02-12] MEDS ORDERED: LORazepam 2 MG TAB PO ONE (19:00)
--- NOTE | 2017-02-12 19:03 | PD ---
HPI . Chest pain Chief Complaint: Chest Pain Time Seen by Provider: 18:39 Travel History International Travel<30 days: No Contact w/Intl Traveler<30days: No Traveled to known affect area: No History of Present Illness HPI The patient presents with a chief complaint of chest pain, shortness of breath and palpitations. Onset of the symptoms was approximately 02/08. The patient was admitted to the Chest Pain Center . During that evaluation, he had a normal chest x-ray, negative d-dimer, negative nuclear stress test, negative serial cardiac enzymes and a negative myocardial perfusion scan. The patient presents today complaining with continued symptoms. He states that he was seen by his primary care provider earlier today and then a prescription for a muscle relaxant. He has had 1 dose and reports no relief of his symptoms. He subsequently presents to us for evaluation and treatment. Patient does not believe that his symptoms could be related to anxiety. Patient states that his symptoms are exacerbated by sudden movement and relieved by rest. Patient reports that his symptoms are severe. They have been continuous and progressively worsening. PFSH Past Medical History Hx Anticoagulant Therapy: No Blood Disorders: No Heart Rhythm Problems: No Cancer: No Cardiac Catheterization: No Cardiovascular Problems: Yes (neg stress test yesterday) High Cholesterol: No Congestive Heart Failure: No Cerebrovascular Accident: Yes Diabetes: No Diminished Hearing: No GERD: Yes Gout: Yes Genitourinary: No Heparin Induced Thrombocytopen: No Hypertension: Yes Immune Disorder: No Implanted Vascular Access Dvce: No Musculoskeletal: No Neurologic: No Psychiatric: No Reproductive: No Respiratory: Yes Immunizations Current: Yes Myocardial Infarction: No Renal Failure: No Seizures: No ?: Not Past Surgical History Coronary Artery Bypass Graft: No Other Surgery: No Family History Family Myocardial Infarction: Yes Social History Alcohol Use: No Tobacco Use: No Substance Use: No Allergies-Medications (Allergen,Severity, Reaction): Coded Allergies: No Known Allergies (Verified , 02/12/17) Reported Meds & Prescriptions Reported Meds & Active Scripts Active Reported Tizanidine (Tizanidine HCl) 4 Mg Cap 4 Mg PO TID Amlodipine (Amlodipine Besylate) 5 Mg Tab 5 Mg PO DAILY Review of Systems Except as stated in HPI: all other systems reviewed are Neg General / Constitutional: No: Fever, Chills HENT: Positive: Headaches Cardiovascular: Positive: Chest Pain or Discomfort, Palpitations Respiratory: Positive: Shortness of Breath Psychiatric: No: Anxiety Physical Exam Narrative Vital Signs Date Time Temp Pulse Resp B/P Pulse Ox O2 Delivery O2 Flow Rate FiO2 02/12/17 17:34 98.3 67 16 147/103 98 GENERAL: Patient is awake and alert and in no acute distress. SKIN: Warm and dry. HEAD: Atraumatic. Normocephalic. EYES: Pupils equal and round. Extraocular movements are intact. ENT: No nasal bleeding or discharge. Mucous membranes pink and moist. NECK: Trachea midline. Neck is supple. CARDIOVASCULAR: Regular rate and rhythm. Heart sounds are normal. RESPIRATORY: No accessory muscle use. Lungs are clear with full air movement throughout. GASTROINTESTINAL: Abdomen soft, non-tender, nondistended. MUSCULOSKELETAL: No obvious deformities. No edema. NEUROLOGICAL: Awake and alert. No obvious cranial nerve deficits. Motor grossly within normal limits. Normal speech. PSYCHIATRIC: Appropriate mood and affect; insight and judgment normal. Data Data Last Documented VS Vital Signs Date Time Temp Pulse Resp B/P Pulse Ox O2 Delivery O2 Flow Rate FiO2 02/12/17 17:34 98.3 67 16 147/103 98 Orders Lorazepam (Ativan) (02/12/17 19:00) MDM Medical Decision Making Medical Screen Exam Complete: Yes Emergency Medical Condition: Yes Medical Record Reviewed: Yes (please see the history of present illness for pertinent items learned on review of his records.) Differential Diagnosis Differential diagnosis of chest pain includes but is not limited to musculoskeletal pain, pulmonary embolism, acute coronary syndrome, pneumonia, pleurisy Narrative Course This patient presents with chest pain, shortness of breath and palpitations. He had a negative cardiac workup just a couple days ago. That will not be repeated today. I will give him a dose of Ativan and then reassess. The patient refused Ativan. I have explained to the patient that there is really no further testing that we can do here in the emergency department for his symptoms. He is now begrudgingly ready to go. Diagnosis Primary Impression: Chest pain, atypical Additional Impressions: Shortness of breath at rest Palpitations Disposition: 01 DISCHARGE HOME Condition: Stable Yuridia Parker MD Feb 12, 2017 19:03
== END 2017-02-12 19:45 | disposition home or self-care (01) ==
LOC: PHED 17:29
DX: R07.89 Other chest pain (principal); R06.02 Shortness of breath; R00.2 Palpitations; I10 Essential (primary) hypertension; Z86.79 Personal history of other diseases of the circulatory system; Z87.19 Personal history of other diseases of the digestive system; Z87.39 Personal history of other diseases of the musculoskeletal system and connective tissue; Z87.09 Personal history of other diseases of the respiratory system
CPT/HCPCS: 99281

== ENCOUNTER 2017-04-23 20:13 | Observation (INO) | payer OTHER ==
[~2017-04-23 20:13] MED LIST changes: +TIZA4CAP3 PO
[2017-04-23 20:20] VITALS: BP 125/84; PULSE 85; RESP 16; TEMP 101.4; O2SAT 96
[2017-04-23 20:30] VITALS: BP 115/84; PULSE 88; RESP 16
[2017-04-23] MEDS ORDERED: ASPIRIN 81 MG CHEW TAB PO ONE (21:15)
[2017-04-23] MEDS ORDERED: SODIUM CHLORIDE 0.9% FLUSH 10 ML FLUSH IVF PRN (21:15)
--- NOTE | 2017-04-23 21:20 | PD ---
HPI Chief Complaint: Pain: Acute or Chronic Time Seen by Provider: 20:47 Travel History International Travel<30 days: No Contact w/Intl Traveler<30days: No Traveled to known affect area: No History of Present Illness HPI Patient is a 51-year-old male presents emergency department for evaluation of stitches, body aches, chest pain shortness of breath and headache for the past 24-48 hours. Patient denies a history of working outdoors or foreign travel. Denies obtaining a flu shot this year. States she's also been having some nasal discharge and runny nose as well as some nausea and nonbilious nonbloody vomiting. Denies any diarrhea denies any abdominal pain. Denies any decreased urinary output. States his symptoms are severe, gradually worsening, aching, associated with fever. PFSH Past Medical History Hx Anticoagulant Therapy: No Blood Disorders: No Heart Rhythm Problems: No Cancer: No Cardiac Catheterization: No Cardiovascular Problems: Yes (neg stress test yesterday) High Cholesterol: No Chest Pain: Yes Congestive Heart Failure: No Cerebrovascular Accident: Yes Diabetes: No Diminished Hearing: No GERD: Yes Gout: Yes Genitourinary: No Heparin Induced Thrombocytopen: No Hypertension: Yes Immune Disorder: No Implanted Vascular Access Dvce: No Musculoskeletal: No Neurologic: No Psychiatric: No Reproductive: No Respiratory: Yes Immunizations Current: Yes Myocardial Infarction: No Renal Failure: No Seizures: No ?: Not Past Surgical History Coronary Artery Bypass Graft: No Other Surgery: No Family History Family Myocardial Infarction: Yes Social History Alcohol Use: No Tobacco Use: No Substance Use: No Allergies-Medications (Allergen,Severity, Reaction): Coded Allergies: No Known Allergies (Verified , 02/12/17) Reported Meds & Prescriptions Reported Meds & Active Scripts Active Reported Tizanidine (Tizanidine HCl) 4 Mg Cap 4 Mg PO TID Amlodipine (Amlodipine Besylate) 5 Mg Tab 5 Mg PO DAILY Review of Systems Except as stated in HPI: all other systems reviewed are Neg Physical Exam Narrative GENERAL: Well-developed well-nourished, appears uncomfortable. SKIN: Focused skin assessment warm/dry. HEAD: Atraumatic. Normocephalic. EYES: Pupils equal and round. No scleral icterus. No injection or drainage. ENT: No nasal bleeding or discharge. Mucous membranes pink and moist. Oropharynx clear, TMs clear bilaterally. NECK: Trachea midline. No JVD. CARDIOVASCULAR: Regular rhythm with mild tachycardia.. No murmur appreciated. RESPIRATORY: No accessory muscle use. Clear to auscultation. Breath sounds equal bilaterally. GASTROINTESTINAL: Abdomen soft, non-tender, nondistended. Hepatic and splenic margins not palpable. MUSCULOSKELETAL: No obvious deformities. No clubbing. No cyanosis. No edema. NEUROLOGICAL: Awake and alert. No obvious cranial nerve deficits. Motor grossly within normal limits. Normal speech. PSYCHIATRIC: Appropriate mood and affect; insight and judgment normal. Data Data Last Documented VS Vital Signs Date Time Temp Pulse Resp B/P (MAP) Pulse Ox O2 Delivery O2 Flow Rate FiO2 04/23/17 20:30 85 04/23/17 20:30 16 115/84 (94) 04/23/17 20:20 101.4 96 Orders Orders Electrocardiogram (04/23/17 21:02) Ckmb (Isoenzyme) Profile (04/23/17 21:02) Complete Blood Count With Diff (04/23/17 21:) Comprehensive Metabolic Panel (04/23/17 21:) D-Dimer (04/23/17 21:02) Magnesium (Mg) (04/23/17 21:02) Prothrombin Time / Inr (Pt) (04/23/17 21:02) Act Partial Throm Time (Ptt) (04/23/17 21:02) Troponin I (04/23/17 21:02) Chest, Single Ap (04/23/17 21:02) Ecg Monitoring (04/23/17 21:02) Iv Access Insert/Monitor (04/23/17 21:02) Oximetry (04/23/17 21:02) Oxygen Administration (04/23/17 21:02) Aspirin Chew (Aspirin Chew) (04/23/17 21:15) Sodium Chloride 0.9% Flush (Ns Flush) (04/23/17 21:15) Lactic Acid (04/23/17 21:02) Sodium Chlor 0.9% 1000 Ml Inj (Ns 1000 M (04/23/17 21:45) Acetaminophen (Tylenol) (04/23/17 21:45) Metoclopramide Inj (Reglan Inj) (04/23/17 21:45) Diphenhydramine Inj (Benadryl Inj) (04/23/17 21:45) CKMB (04/23/17 21:00) CKMB% (04/23/17 21:00) Sodium Chlor 0.9% 1000 Ml Inj (Ns 1000 M (04/23/17 22:45) Urinalysis - C+S If Indicated (04/23/17 22:56) Blood Culture (04/23/17 23:05) Admit Order (Ed Use Only) (04/23/17 ) Place In Observation (04/23/17 ) Vital Signs (Adult) Q4H (04/23/17 23:33) Activity Oob With Assistance (04/23/17 23:33) Continuous Improvement Facilitator / Telemetry .CONTINUOUS (04/23/17 23:33) Diet Heart Healthy (04/24/17 Breakfast) Sodium Chlor 0.9% 1000 Ml Inj (Ns 1000 M (04/23/17 23:33) Sodium Chloride 0.9% Flush (Ns Flush) (04/23/17 23:45) Sodium Chloride 0.9% Flush (Ns Flush) (04/24/17 09:00) Basic Metabolic Panel (Bmp) (04/24/17 06:00) Complete Blood Count With Diff (04/24/17 06:00) Creatine Kinase (Cpk) (04/24/17 06:00) Naloxone Inj (Narcan Inj) (04/23/17 23:45) Ventilation & Perfusion Scan (04/23/17 ) Labs Laboratory Tests Test 04/23/17 21:00 White Blood Count 5.8 TH/MM3 Red Blood Count 4.38 MIL/MM3 Hemoglobin 12.6 GM/DL Hematocrit 37.8 % Mean Corpuscular Volume 86.4 FL Mean Corpuscular Hemoglobin 28.7 PG Mean Corpuscular Hemoglobin Concent 33.2 % Red Cell Distribution Width 14.0 % Platelet Count 126 TH/MM3 Mean Platelet Volume 9.9 FL Neutrophils (%) (Auto) 63.4 % Lymphocytes (%) (Auto) 29.3 % Monocytes (%) (Auto) 5.4 % Eosinophils (%) (Auto) 0.6 % Basophils (%) (Auto) 1.3 % Neutrophils # (Auto) 3.7 TH/MM3 Lymphocytes # (Auto) 1.7 TH/MM3 Monocytes # (Auto) 0.3 TH/MM3 Eosinophils # (Auto) 0.0 TH/MM3 Basophils # (Auto) 0.1 TH/MM3 CBC Comment DIFF FINAL Differential Comment Prothrombin Time 10.7 SEC Prothromb Time International Ratio 1.0 RATIO Activated Partial Thromboplast Time 23.5 SEC D-Dimer Quantitative (PE/DVT) 0.81 MG/L FEU Blood Urea Nitrogen 17 MG/DL Creatinine 1.60 MG/DL Random Glucose 95 MG/DL Total Protein 8.1 GM/DL Albumin 4.0 GM/DL Calcium Level 9.4 MG/DL Magnesium Level 2.1 MG/DL Alkaline Phosphatase 50 U/L Aspartate Amino Transf (AST/SGOT) 55 U/L Alanine Aminotransferase (ALT/SGPT) 39 U/L Total Bilirubin 0.8 MG/DL Sodium Level 138 MEQ/L Potassium Level 3.7 MEQ/L Chloride Level 103 MEQ/L Carbon Dioxide Level 28.5 MEQ/L Anion Gap 7 MEQ/L Estimat Glomerular Filtration Rate 56 ML/MIN Lactic Acid Level 1.1 mmol/L Total Creatine Kinase 2585 U/L Creatine Kinase MB 1.7 NG/ML Creatine Kinase MB % 0.1 % Troponin I LESS THAN 0.02 NG/ML MDM Medical Decision Making Medical Screen Exam Complete: Yes Emergency Medical Condition: Yes Differential Diagnosis Febrile illness, dehydration, pneumonia, urinary tract infection, ACS unlikely, MN likely, PE unlikely. Narrative Course Patient roomed emergency department 51-year-old male with fever and body aches as well as chest pain and headache. He has no nuchal rigidity Kernig's and Brudzinski signs are negative. I think that meningitis is highly unlikely. Patient does have a family history of ACS and basic labs are warranted. He does have some chest pain and shortness of breath mild tachycardia and leg pain. Pulmonary embolism needs to be considered however it seems unlikely given the remainder of his symptoms. A d-dimer was weakly positive. The patient also does have a presumed acute kidney injury with a creatinine 1.6, and rhabdomyolysis with a CK of 3000. Given his febrile illness and viral myositis needs to be considered in this gentleman. He was given 2 L normal saline, Tylenol, Benadryl and Reglan, and an aspirin. I discussed the results at length with this patient including the fact that a pulmonary wasn't could not be completely excluded at this time my clinical suspicion is low. I do have a high suspicion that the patient does have myositis. I recommended that he be admitted to the hospital for monitoring and further workup and IV hydration. He is agreeable. His headache is completely resolved after Benadryl and Reglan. His nausea has been resolved as well. Patient was discussed with Dr. Antonio for admission. I discussed the elevated d- dimer and at this time I think the patient should be reassessed in the morning to avoid IV contrast the patient with elevated creatinine and elevated CK. She agrees. If clinical suspicion remains in the morning and still has elevated creatinine a VQ scan may be considered as well. At this time I think the patient could be admitted for observation and anticoagulated while waiting for reassessment morning. Diagnosis Primary Impression: Rhabdomyolysis Additional Impressions: Fever Myositis Admitting Information Admitting Physician Requests: Admit Condition: Stable Esa Perez MD Apr 23, 2017 21:20
[2017-04-23 21:21] LABS: AUTOMATED NEUTROPHIL # 3.7 TH/MM3 (1.8-7.7); BASOPHIL # 0.1 TH/MM3 (0-0.2); BASOPHIL % 1.3 % (0.0-2.0); EOSINOPHIL % 0.6 % (0.0-4.0); HEMATOCRIT 37.8 % (39.0-51.0); LYMPH % 29.3 % (9.0-44.0); LYMPHOCYTE # 1.7 TH/MM3 (1.0-4.8); MEAN CELL VOLUME 86.4 FL (80.0-100.0); MEAN CORPUSCULAR HEMOGLOBIN 28.7 PG (27.0-34.0); MEAN CORPUSCULAR HGB CONC 33.2 % (32.0-36.0); MONO % 5.4 % (0.0-8.0); NEUT % 63.4 % (16.0-70.0); PLATELET COUNT 126 TH/MM3 (150-450); RED BLOOD COUNT 4.38 MIL/MM3 (4.50-5.90); WHITE BLOOD COUNT 5.8 TH/MM3 (4.0-11.0)
[2017-04-23 21:26] LABS: HEMO FLAGS DIFF FINAL
[2017-04-23 21:33] LABS: CHLORIDE 103 MEQ/L (98-107); POTASSIUM 3.7 MEQ/L (3.5-5.1); SODIUM (NA) 138 MEQ/L (136-145)
[2017-04-23 21:37] LABS: ANION GAP 7 MEQ/L (5-15); BICARBONATE 28.5 MEQ/L (21.0-32.0); BLOOD UREA NITROGEN 17 MG/DL (7-18); MAGNESIUM 2.1 MG/DL (1.5-2.5)
[2017-04-23 21:40] LABS: ALT (GPT) 39 U/L (12-78); AST (GOT) 55 U/L (15-37); GLOMERULAR FILTRATION RATE 56 ML/MIN (>89)
[2017-04-23 21:42] LABS: APTT (PATIENT) 23.5 SEC (24.3-30.1); PROTHROMBIN TIME - PATIENT 10.7 SEC (9.8-11.6); TOTAL BILIRUBIN ADULT 0.8 MG/DL (0.2-1.0)
[2017-04-23 21:44] LABS: ALKALINE PHOSPHATASE 50 U/L (45-117)
[2017-04-23] MEDS ORDERED: ACETAMINOPHEN 325 MG TAB PO ONE (21:45)
[2017-04-23] MEDS ORDERED: SODIUM CHLOR 0.9% 1000 ML INJ 1,000 ML IV ONE ×2 (21:45→22:45)
[2017-04-23] MEDS ORDERED: METOCLOPRAMIDE HCL 10 MG/2 ML VIAL IV PUSH ONE (21:45)
[2017-04-23] MEDS ORDERED: diphenhydrAMINE HCL 50 MG/ML VIAL IV PUSH ONE (21:45)
[2017-04-23 21:55] VITALS: BP 124/64; PULSE 92
[2017-04-23 21:55] LABS: CREATINE KINASE 2585 U/L (39-308)
[2017-04-23 22:07] LABS: CKMB 1.7 NG/ML (0.5-3.6)
[2017-04-23 22:50] VITALS: BP 125/62; PULSE 89; TEMP 99.2
[2017-04-23 23:20] VITALS: BP 127/82; PULSE 84; RESP 18; O2SAT 94
--- NOTE | 2017-04-23 23:38 | RADRPT ---
EXAM DATE/TIME: 04/23/2017 22:39 [facility] COMPARISON: CHEST PA & LAT, July 03, 2015, 14:03. SOFT TISSUE NECK, December 24, 2016, 18:45. CHEST SINGLE AP, February 10, 2017, 15:11. INDICATIONS : Short of breath today. MEDICAL HISTORY : Hypertension. SURGICAL HISTORY : None. ENCOUNTER: Initial ACUITY: 1 day PAIN SCORE: 0/10 LOCATION: Bilateral chest FINDINGS: The heart size is normal. The lungs are clear. There is air lucency seen at the right thoracic inlet region. This uncertain etiology and significance. No effusion is seen. CONCLUSION: 1. No acute cardiothymic process. 2. Air lucency seen in the medial right thoracic inlet region of unknown significance or etiology. Cassius Mcneill MD on April 23, 2017 at 23:35 Board Certified Radiologist. This report was verified electronically.
[2017-04-23] MEDS ORDERED: NALOXONE HCL 0.4 MG/ML AMP IV PUSH PRN (23:45)
[2017-04-23] MEDS ORDERED: SODIUM CHLORIDE 0.9% FLUSH 10 ML FLUSH IV FLUSH PRN (23:45)
[2017-04-24] VITALS (7 sets, daily range): BP systolic 107–128; BP diastolic 65–82; PULSE 63–93; RESP 16–20; TEMP 97.6–98.4; O2SAT 94–97
[2017-04-24] MEDS ORDERED: ENOXAPARIN SODIUM 100 MG/ML SYRINGE SQ ONE
[2017-04-24] MEDS: SODIUM CHLOR 0.9% 1000 ML INJ 1,000 ML IV SCH ×2 (01:11→11:54)
[2017-04-24 01:37] LABS: BLOOD, URINE TRACE (NEG); GLUCOSE,URINE NEG (NEG); KETONE, URINE NEG (NEG); NITRITE,URINE NEG (NEG)
[2017-04-24 01:47] LABS: URINE COLOR YELLOW (YELLW/STRAW)
[2017-04-24 01:50] LABS: COMMENT (UR) CULT NOT INDICATED; CULTURE IF INDICATED CULT NOT INDICATED; RBC, URINE 0-3 /hpf (0-3); SQUAMOUS EPITHELIAL CELL URINE 0-5 /hpf (0-5)
[2017-04-24 06:56] LABS: AUTOMATED NEUTROPHIL # 2.4 TH/MM3 (1.8-7.7); BASOPHIL % 0.5 % (0.0-2.0); EOSINOPHIL % 0.7 % (0.0-4.0); HEMATOCRIT 36.1 % (39.0-51.0); HEMO FLAGS DIFF FINAL; LYMPH % 41.9 % (9.0-44.0); MEAN CELL VOLUME 85.7 FL (80.0-100.0); MEAN CORPUSCULAR HEMOGLOBIN 28.4 PG (27.0-34.0); MEAN CORPUSCULAR HGB CONC 33.1 % (32.0-36.0); MONO % 6.6 % (0.0-8.0); NEUT % 50.3 % (16.0-70.0); PLATELET COUNT 110 TH/MM3 (150-450); RED BLOOD COUNT 4.21 MIL/MM3 (4.50-5.90); RED CELL DISTRIBUTION WIDTH 13.8 % (11.6-17.2); WHITE BLOOD COUNT 4.7 TH/MM3 (4.0-11.0)
[2017-04-24 07:03] LABS: POTASSIUM 3.7 MEQ/L (3.5-5.1)
[2017-04-24 07:44] LABS: CKMB 1.3 NG/ML (0.5-3.6)
[2017-04-24] MEDS ORDERED: SODIUM CHLORIDE 0.9% FLUSH 10 ML FLUSH IV FLUSH SCH (09:00)
--- NOTE | 2017-04-24 10:14 | EKG ---
Date Performed: 04/23/2017 Time Performed: 21:21:56 PTAGE: 51 years EKG: Sinus rhythm NONSPECIFIC T-WAVE ABNORMALITY BORDERLINE ECG PREVIOUS TRACING : 02/10/2017 23.17 DOCTOR: Frederic Anderson Interpretating Date/Time 04/24/2017 10:12:43
--- NOTE | 2017-04-24 10:25 | RADRPT ---
EXAM DATE/TIME: 04/24/2017 09:40 [facility] COMPARISON: CHEST SINGLE AP, April 23, 2017, 22:39. INDICATIONS : Chest pain with dyspnea. DOSE: 8.5 mCi Tc99m MAA IV 1.6 mCi Tc99m DTPA aerosol MEDICAL HISTORY : Hypertension. Gastroesophageal reflux disease. SURGICAL HISTORY : None. ENCOUNTER: Subsequent ACUITY: 3 days PAIN SCALE: 5/10 LOCATION: Left chest TECHNIQUE: Following five minutes of tidal breathing of DTPA aerosol, planar images of the lungs were performed in eight projections. The patient was then injected with MAA, and eight-view perfusion scan was perf ormed. FINDINGS: There is a homogeneous pattern of aerosol delivery to the periphery of both lungs. No focal ventilat ory defects are seen. The perfusion lung scan demonstrates a homogenous pattern of uptake in both lungs. No segmental or s ubsegmental defects are seen. CONCLUSION: Low probability scan for pulmonary embolism Cassius Quijano MD on April 24, 2017 at 10:23 Board Certified Radiologist. This report was verified electronically.
[2017-04-24] MEDS ORDERED: amLODIPine BESYLATE 5 MG TAB PO SCH (11:45)
[2017-04-24] MEDS ORDERED: SODIUM CHLOR 0.9% 1000 ML INJ 1,000 ML IV ONE (11:45)
[2017-04-24] MEDS ORDERED: ACETAMINOPHEN/CODEINE 300 MG/30 MG TAB PO ONE (11:45)
--- NOTE | 2017-04-24 12:44 | HHI.HP ---
[facility] Lyle Melchor M.D. Admission Diagnosis Myositis, Rhabdomyolysis, JOSAFAT Diagnoses: Chief Complaint: Muscle aches and headache Travel History International Travel<30 Days: No Contact w/Intl Traveler <30 Da: No Traveled to Known Affected Are: No History of Present Illness This patient is a 51-year-old gentleman with history of hypertension and chronic kidney disease who came in with a 10 out of 10 headache. Came to the emergency room after he had been exercising by walking quite a bit and out in the heat feeding the homeless. He felt a little nauseated and had a low-grade temperature. Patient was also found to have rhabdomyolysis. He was recommended for observation in the hospital and had IV fluids given. The patient's headache was 10 out of 10 and improved initially with Tylenol. His CPK was 2585 and has gone down to 1880. His renal function is at baseline. Patient had no further fevers. He thinks he may have had a virus but is not sure. He admits that he does not drink enough fluid in being out of the heat in [place] he experienced increased muscle discomfort. He also complained of some scattered "electro sensation " his chest. He does inform me that he follows up with public information director Dr. Chavez hasn't had a heart stress test 2 months ago as well as outpatient echocardiogram. [employer] told him he was fine and that he had no cardiac problems. Patient does not want any further cardiac testing at this time. Did review his EKG and chest x-ray. On my review there does not appear to be consistent with ischemic changes. Patient was monitored and continued to improve. Review of Systems Constitutional: DENIES: Diaphoretic episodes, Fatigue, Fever, Weight gain, Weight loss, Chills, Dizziness, Change in appetite, Night Sweats Endocrine: DENIES: Heat/cold intolerance, Polydipsia, Polyuria, Polyphagia Eyes: DENIES: Blurred vision, Diplopia, Eye inflammation, Eye pain, Vision loss , Photosensitivity, Double Vision Ears, nose, mouth, throat: DENIES: Tinnitus, Hearing loss, Vertigo, Nasal discharge, Oral lesions, Throat pain, Hoarseness, Ear Pain, Running Nose, Epistaxis, Sinus Pain, Toothache, Odynophagia Respiratory: DENIES: Apneas, Cough, Snoring, Wheezing, Hemoptysis, Sputum production, Shortness of breath Cardiovascular: DENIES: Chest pain, Palpitations, Syncope, Dyspnea on Exertion , PND, Lower Extremity Edema, Orthopnea, Claudication Gastrointestinal: DENIES: Abdominal pain, Black stools, Bloody stools, Constipation, Diarrhea, Nausea, Vomiting, Difficulty Swallowing, Anorexia Genitourinary: DENIES: Sexual dysfunction, Urinary frequency, Urinary incontinence, Urgency, Hematuria, Dysuria, Nocturia, Penile Discharge, Testicular Pain, Testicular Swelling Musculoskeletal: COMPLAINS OF: Muscle aches, DENIES: Joint pain, Stiffness, Joint Swelling, Back pain, Neck pain Hematologic/lymphatic: DENIES: Bruising, Lymphadenopathy Immunologic/allergic: DENIES: Eczema, Urticaria Neurologic: DENIES: Abnormal gait, Headache, Localized weakness, Paresthesias, Seizures, Speech Problems, Tremor, Poor Balance Psychiatric: DENIES: Anxiety, Confusion, Mood changes, Depression, Hallucinations, Agitation, Suicidal Ideation, Homicidal Ideation, Delusions Except as stated in HPI: all other systems reviewed are Neg Past Family Social History Past Medical History Hypertension Chronic kidney disease Past Surgical History denies Reported Medications Reviewed in the EMR, nothing new Allergies: Coded Allergies: No Known Allergies (Verified , 02/12/17) Active Ordered Medications Reviewed in the EMR Family History Father's history unknown, mother is 80 and healthy Social History No tobacco or alcohol, lives with his , is a psychology assistant Physical Exam Vital Signs Vital Signs Date Time Temp Pulse Resp B/P (MAP) Pulse Ox O2 Delivery O2 Flow Rate FiO2 04/24/17 08:00 97.8 93 17 128/80 (96) 95 04/24/17 03:09 98.4 67 20 107/66 (80) 97 04/24/17 02:30 04/24/17 01:48 85 16 118/73 (88) 95 04/24/17 01:07 84 18 128/82 (97) 95 Room Air 04/23/17 23:20 84 18 127/82 (97) 94 Room Air 04/23/17 22:50 99.2 89 125/62 (83) 04/23/17 21:55 92 124/64 (84) 04/23/17 20:30 85 04/23/17 20:30 88 16 115/84 (94) 04/23/17 20:20 101.4 85 16 125/84 (98) 96 Physical Exam GENERAL: This is a well-nourished, well-developed patient, in no apparent distress. SKIN: No rashes, ecchymoses or lesions. Cool and dry. HEAD: Atraumatic. Normocephalic. No temporal or scalp tenderness. EYES: Pupils equal round and reactive. Extraocular motions intact. No scleral icterus. No injection or drainage. ENT: Nose without bleeding, purulent drainage or septal hematoma. Throat without erythema, tonsillar hypertrophy or exudate. Uvula midline. Airway patent. NECK: Trachea midline. No JVD or lymphadenopathy. Supple, nontender, no meningeal signs. CARDIOVASCULAR: Regular rate and rhythm without murmurs, gallops, or rubs. RESPIRATORY: Clear to auscultation. Breath sounds equal bilaterally. No wheezes , rales, or rhonchi. GASTROINTESTINAL: Abdomen soft, non-tender, nondistended. No hepato-splenomegaly , or palpable masses. No guarding. MUSCULOSKELETAL: Extremities without clubbing, cyanosis, or edema. No joint tenderness, effusion, or edema noted. No calf tenderness. Negative Homans sign bilaterally. NEUROLOGICAL: Awake and alert. Cranial nerves II through XII intact. Motor and sensory grossly within normal limits. Five out of 5 muscle strength in all muscle groups. Normal speech. Laboratory Laboratory Tests Test 04/23/17 21:00 04/24/17 01:30 04/24/17 05:45 White Blood Count 5.8 4.7 Red Blood Count 4.38 4.21 Hemoglobin 12.6 11.9 Hematocrit 37.8 36.1 Mean Corpuscular Volume 86.4 85.7 Mean Corpuscular Hemoglobin 28.7 28.4 Mean Corpuscular Hemoglobin Concent 33.2 33.1 Red Cell Distribution Width 14.0 13.8 Platelet Count 126 110 Mean Platelet Volume 9.9 10.1 Neutrophils (%) (Auto) 63.4 50.3 Lymphocytes (%) (Auto) 29.3 41.9 Monocytes (%) (Auto) 5.4 6.6 Eosinophils (%) (Auto) 0.6 0.7 Basophils (%) (Auto) 1.3 0.5 Neutrophils # (Auto) 3.7 2.4 Lymphocytes # (Auto) 1.7 2.0 Monocytes # (Auto) 0.3 0.3 Eosinophils # (Auto) 0.0 0.0 Basophils # (Auto) 0.1 0.0 CBC Comment DIFF FINAL DIFF FINAL Differential Comment Prothrombin Time 10.7 Prothromb Time International Ratio 1.0 Activated Partial Thromboplast Time 23.5 D-Dimer Quantitative (PE/DVT) 0.81 Blood Urea Nitrogen 17 15 Creatinine 1.60 1.50 Random Glucose 95 78 Total Protein 8.1 Albumin 4.0 Calcium Level 9.4 9.0 Magnesium Level 2.1 Alkaline Phosphatase 50 Aspartate Amino Transf (AST/SGOT) 55 Alanine Aminotransferase (ALT/SGPT) 39 Total Bilirubin 0.8 Sodium Level 138 141 Potassium Level 3.7 3.7 Chloride Level 103 108 Carbon Dioxide Level 28.5 28.0 Anion Gap 7 5 Estimat Glomerular Filtration Rate 56 60 Lactic Acid Level 1.1 Total Creatine Kinase 2585 1880 Creatine Kinase MB 1.7 1.3 Creatine Kinase MB % 0.1 0.1 Troponin I LESS THAN 0.02 Urine Color YELLOW Urine Turbidity CLEAR Urine pH 6.0 Urine Specific [place] 1.010 Urine Protein NEG Urine Glucose (UA) NEG Urine Ketones NEG Urine Occult Blood TRACE Urine Nitrite NEG Urine Bilirubin NEG Urine Leukocyte Esterase NEG Urine RBC 0-3 Urine Squamous Epithelial Cells 0-5 Microscopic Urinalysis Comment CULT NOT INDICATED Date/Time Source Procedure Growth Status 04/24/17 01:30 Blood Peripheral Aerobic Blood Culture Pending Received 04/24/17 01:30 Blood Peripheral Anaerobic Blood Culture Pending Received Result Diagram: 04/24/17 0545 04/24/17 0545 Imaging Last Impressions Lung Scan-VQ Nuclear Medicine 04/24/17 0000 Signed Impressions: Service Date/Time: Monday, April 24, 2017 09:40 - CONCLUSION: Low probability scan for pulmonary embolism Cassius Quijano MD Chest X-Ray 04/23/172101 Signed Impressions: Service Date/Time: Sunday, April 23, 2017 22:39 - CONCLUSION: 1. No acute cardiothymic process. 2. Air lucency seen in the medial right thoracic inlet region of unknown significance or etiology. MD Alex Serranoi VTE Risk Assessment Caprini VTE Risk Assessment: Mod/High Risk (score >= 2) Caprini Risk Assessment Model Point Value = 1 Point Value = 2 Point Value = 3 Point Value = 5 Age 41-60 Minor surgery BMI > 25 kg/m2 Swollen legs Varicose veins or History of unexplained or recurrent spontaneous Oral contraceptives or hormone replacement Sepsis (< 1 month) Serious lung disease, including pneumonia (< 1 month) Abnormal pulmonary function Acute myocardial infarction Congestive heart failure (< 1 month) History of inflammatory bowel disease Medical patient at bed rest Age 61-74 Arthroscopic surgery Major open surgery (> 45 min) Laparoscopic surgery (> 45 min) Malignancy Confined to bed (> 72 hours) Immobilizing plaster cast Central venous access Age >= 75 History of VTE Family history of VTE Factor V Leiden Prothrombin [id number] Lupus anticoagulant Anticardiolipin antibodies Elevated serum homocysteine Heparin-induced thrombocytopenia Other congenital or acquired thrombophilia Stroke (< 1 month) Elective arthroplasty Hip, pelvis, or leg fracture Acute spinal cord injury (< 1 month) Prophylaxis Regimen Total Risk Factor Score Risk Level Prophylaxis Regimen 0-1 Low Early ambulation 2 Moderate Order ONE of the following: *Sequential Compression Device (SCD) *Heparin 5000 units SQ BID 3-4 Higher Order ONE of the following medications: *Heparin 5000 units SQ TID *Enoxaparin/Lovenox 40 mg SQ daily (WT < 150 kg, CrCl > 30 mL/min) *Enoxaparin/Lovenox 30 mg SQ daily (WT < 150 kg, CrCl > 10-29 mL/min) *Enoxaparin/Lovenox 30 mg SQ BID (WT < 150 kg, CrCl > 30 mL/min) AND/OR *Sequential Compression Device (SCD) 5 or more Highest Order ONE of the following medications: *Heparin 5000 units SQ TID (Preferred with Epidurals) *Enoxaparin/Lovenox 40 mg SQ daily (WT < 150 kg, CrCl > 30 mL/min) *Enoxaparin/Lovenox 30 mg SQ daily (WT < 150 kg, CrCl > 10-29 mL/min) *Enoxaparin/Lovenox 30 mg SQ BID (WT < 150 kg, CrCl > 30 mL/min) AND *Sequential Compression Device (SCD) Assessment and Plan Problem List: (1) Rhabdomyolysis ICD Code: M62.82 - Rhabdomyolysis Status: Acute Plan: CPK improved, patient has been exercising quite a bit lately and may have had a recent virus. Continue with IV fluids, follow blood pressure control Repeat CBC this afternoon (2) HTN (hypertension) ICD Code: I10 - Essential (primary) hypertension Status: Acute Plan: Resume home medications for blood pressure (3) Chronic kidney disease, stage 3 ICD Code: N18.3 - Chronic kidney disease, stage III (moderate) Status: Acute Plan: Likely at baseline Assessment and Plan Discharge home Activity not restricted Patient encouraged to drink fluids Code Status Full code Discussed Condition With patient, Meghna Burgos RN, MD Apr 24, 2017 12:44
--- NOTE | 2017-04-24 17:09 | HHI.DCPOC ---
Discharge Care Plan Diagnosis: (1) Rhabdomyolysis Goals to Promote Your Health * To prevent worsening of your condition and complications * To maintain your health at the optimal level Directions to Meet Your Goals Take your medications as prescribed Follow your dietary instruction Follow activity as directed Keep your appointments as scheduled Take your immunizations and boosters as scheduled If your symptoms worsen call your PCP, if no PCP go to Urgent Care Center or Emergency Room Smoking is Dangerous to Your Health. Avoid second hand smoke Call the 24-hour hour crisis hotline for domestic abuse at Meghna Omer MD Apr 24, 2017 17:09
[2017-04-24 17:25] LABS: CREATINE KINASE 1706 U/L (39-308)
[2017-04-24 17:37] LABS: CKMB 1.3 NG/ML (0.5-3.6)
== END 2017-04-24 19:00 | disposition home or self-care (01) ==
LOC: PHED 20:13 → PHEDA 23:28 → UNDOADMIN 23:28 → PHEDA 23:37 → INTOOBSV 23:37 → PH5A 04-24 02:26
PROVIDERS: ADMIT Hospitalist; ATTEND Hospitalist
DX: M62.82 Rhabdomyolysis (principal); M60.9 Myositis, unspecified; R51 Headache; R11.2 Nausea with vomiting, unspecified; R50.9 Fever, unspecified; R06.02 Shortness of breath; R07.9 Chest pain, unspecified; R06.00 Dyspnea, unspecified; I12.9 Hypertensive chronic kidney disease with stage 1 through stage 4 chronic kidney disease, or unspecified chronic kidney disease; N18.3 Chronic kidney disease, stage 3 (moderate); K21.9 Gastro-esophageal reflux disease without esophagitis; Z86.73 Personal history of transient ischemic attack (TIA), and cerebral infarction without residual deficits; Z79.899 Other long term (current) drug therapy
CPT/HCPCS: 71010; 78582; 80048; 80053; 81001; 82550; 82552; 83605; 83735; 84484; 85025; 85379; 85610; 85730; 87040; 93005; 96361; 96372; 96374; 96375; A9540; A9567; G0378; J1200; J1650; J2765; J7030

== ENCOUNTER 2017-05-24 20:50 | Emergency (ER) | payer OTHER ==
[2017-05-24 20:54] VITALS: BP 156/96; PULSE 61; RESP 18; TEMP 97.7; O2SAT 98
[2017-05-24] MEDS ORDERED: LIDOCAINE 2% JELLY 30 ML TUBE TOPICAL ONE (21:45)
--- NOTE | 2017-05-24 21:45 | PD ---
HPI Chief Complaint: GI Complaint Time Seen by Provider: 21:30 Travel History International Travel<30 days: No Contact w/Intl Traveler<30days: No Traveled to known affect area: No History of Present Illness HPI The patient is a 51-year-old male that has had painful hemorrhoids for months but got worst over the past several days. [place] and prescribed Colace as well as Anusol suppositories. Unfortunately, he was unable to get the suppositories because the pharmacy did not have them at that time. He did use the Colace and this converted his hard stool to a softer stool. He comes in because of the painful hemorrhoids. He also had some bright red blood when using the bathroom. PFSH Past Medical History Hx Anticoagulant Therapy: No Blood Disorders: No Anxiety: No Depression: No Heart Rhythm Problems: No Cancer: No Cardiac Catheterization: No Cardiovascular Problems: Yes (neg stress test recently. 2016) High Cholesterol: No Chest Pain: Yes Congestive Heart Failure: No Cerebrovascular Accident: Yes Diabetes: No Diminished Hearing: No Endocrine: No Gastrointestinal Disorders: Yes GERD: Yes Gout: Yes Genitourinary: No Headaches: Yes Heparin Induced Thrombocytopen: No Hypertension: Yes Immune Disorder: No Implanted Vascular Access Dvce: No Musculoskeletal: No Neurologic: Yes Psychiatric: No Reproductive: No Respiratory: No Immunizations Current: Yes Migraines: No Myocardial Infarction: No Renal Failure: No Seizures: No Tetanus Vaccination: < 5 Years Influenza Vaccination: No Past Surgical History Surgical History: No Previous Surgery Coronary Artery Bypass Graft: No Other Surgery: No Family History Family Myocardial Infarction: Yes Social History Alcohol Use: No Tobacco Use: No Substance Use: No Allergies-Medications (Allergen,Severity, Reaction): Coded Allergies: No Known Allergies (Verified Adverse Reaction, Unknown, 05/24/17) Reported Meds & Prescriptions Reported Meds & Active Scripts Active Reported Tizanidine (Tizanidine HCl) 4 Mg Cap 4 Mg PO TID Amlodipine (Amlodipine Besylate) 5 Mg Tab 5 Mg PO DAILY Review of Systems Except as stated in HPI: all other systems reviewed are Neg Physical Exam Narrative GENERAL: Well-nourished, alert and oriented, obese patient in minimal apparent distress with his hemorrhoidal discomfort. His vital signs show blood pressure 156/96 but otherwise normal. SKIN: Focused skin assessment warm/dry. HEAD: Normocephalic. EYES: No scleral icterus. No injection or drainage. NECK: Supple, trachea midline. No JVD or lymphadenopathy. CARDIOVASCULAR: Regular rate and rhythm without murmurs, gallops, or rubs. RESPIRATORY: Breath sounds equal bilaterally. No accessory muscle use. GASTROINTESTINAL: Abdomen soft, non-tender, nondistended. MUSCULOSKELETAL: No cyanosis, or edema. BACK: Nontender without obvious deformity. No CVA tenderness. RECTAL EXAM: There is a left-sided hemorrhoid which is tender but not thrombosed. There was apparent bleeding from another hemorrhoid which has stopped. There is no evidence of rectal fissure or abscess present. Data Data Last Documented VS Vital Signs Date Time Temp Pulse Resp B/P (MAP) Pulse Ox O2 Delivery O2 Flow Rate FiO2 05/24/17 20:54 97.7 61 18 156/96 (116) 98 Orders Orders Lidocaine 2% Jelly (Xylocaine 2% Jelly) (05/24/17 21:45) MDM Medical Decision Making Medical Screen Exam Complete: Yes Emergency Medical Condition: Yes Medical Record Reviewed: Yes Differential Diagnosis Thrombosed hemorrhoid, nonthrombosed hemorrhoid, bleeding hemorrhoid, rectal fissure, rectal abscess Narrative Course The patient has a painful nonthrombosed hemorrhoid at this time. He requests some topical lidocaine, he thinks that will help the pain. We will give him topical lidocaine gell. He has already seen a specialist 2 days ago and she prescribed appropriate medications for him. He should continue to try to get the rectal suppositories. Diagnosis Primary Impression: Hemorrhoid prolapse Additional Instructions: You can use the topical lidocaine 4 times daily if it gives him some relief. Continue to try to get those suppositories that the specialist prescribed. Disposition: 01 DISCHARGE HOME Condition: Stable Raghu Arnett MD May 24, 2017 21:45
[2017-05-24 21:58] VITALS: BP 150/90
== END 2017-05-24 22:19 | disposition home or self-care (01) ==
LOC: PHED 20:50
DX: K64.8 Other hemorrhoids (principal); I10 Essential (primary) hypertension
CPT/HCPCS: 99282

== ENCOUNTER 2017-06-28 11:03 | Emergency (ER) | payer OTHER ==
[~2017-06-28] VITALS: Ht 165.1 cm; Wt 100.0 kg
[2017-06-28 11:06] VITALS: BP 133/103; PULSE 85; RESP 18; TEMP 99.1; O2SAT 97
[2017-06-28] MEDS ORDERED: oxyCODONE/ACETAMINOPHEN 5 MG/325 MG TAB PO ONE (11:45)
--- NOTE | 2017-06-28 11:51 | PD ---
HPI Chief Complaint: Musculoskeletal Complaint Time Seen by Provider: 11:32 Travel History International Travel<30 days: No Contact w/Intl Traveler<30days: No Traveled to known affect area: No History of Present Illness HPI Patient is a 51-year-old male who presents to emergency room with complaints of right ankle pain. Patient reports that about a week ago, he was at home and twisted his right ankle. Reports that he has been trying home remedies to help with his ankle pain with no relief of symptoms. Reports that his ankle has become swollen. He has not placed ice on his ankle. Reports that when he hurt his ankle, he did not suffer any trauma to his head/neck. Reports that he did fall, just "twisted my ankle." Reports no other complaints at this time. PFSH Past Medical History Hx Anticoagulant Therapy: No Blood Disorders: No Anxiety: No Depression: No Heart Rhythm Problems: No Cancer: No Cardiac Catheterization: No Cardiovascular Problems: Yes (neg stress test recently. 2017) High Cholesterol: No Chest Pain: Yes Congestive Heart Failure: No Cerebrovascular Accident: Yes Diabetes: No Diminished Hearing: No Endocrine: No Gastrointestinal Disorders: Yes GERD: Yes Gout: Yes Genitourinary: No Headaches: Yes Heparin Induced Thrombocytopen: No Hypertension: Yes Immune Disorder: No Implanted Vascular Access Dvce: No Musculoskeletal: No Neurologic: Yes Psychiatric: No Reproductive: No Respiratory: No Immunizations Current: Yes Migraines: No Myocardial Infarction: No Renal Failure: No Seizures: No Past Surgical History Coronary Artery Bypass Graft: No Other Surgery: No Social History Alcohol Use: No Tobacco Use: No Substance Use: No Allergies-Medications (Allergen,Severity, Reaction): Coded Allergies: No Known Allergies (Verified Adverse Reaction, Unknown, 06/28/17) Reported Meds & Prescriptions Reported Meds & Active Scripts Active Reported Amlodipine (Amlodipine Besylate) 5 Mg Tab 5 Mg PO DAILY Review of Systems General / Constitutional: No: Fever Eyes: No: Visual changes HENT: No: Headaches Cardiovascular: No: Chest Pain or Discomfort Respiratory: No: Shortness of Breath Gastrointestinal: No: Abdominal Pain Genitourinary: No: Dysuria Musculoskeletal: Positive: Limited ROM (right ankle), Pain (right ankle pain) Skin: No Rash Neurologic: No: Weakness Psychiatric: No: Depression Endocrine: No: Polydipsia Hematologic/Lymphatic: No: Easy Bruising Physical Exam Narrative GENERAL: NAD SKIN: Focused skin assessment warm/dry. HEAD: Atraumatic. Normocephalic. EYES: Pupils equal and round. No scleral icterus. No injection or drainage. NECK: Trachea midline. No JVD. CARDIOVASCULAR: Regular rate and rhythm. No murmur appreciated. RESPIRATORY: No accessory muscle use. Clear to auscultation. Breath sounds equal bilaterally. GASTROINTESTINAL: Abdomen soft, non-tender, nondistended. Hepatic and splenic margins not palpable. MUSCULOSKELETAL: No obvious deformities. No clubbing. No cyanosis. Mild edema to right ankle. Increased pain with palpation of right medial malleolus, pulses intact, neurovascularly intact, good rom to right, there is no erythema or signs of infection. lle: normal exam PSYCHIATRIC: Appropriate mood and affect; insight and judgment normal. Data Data Last Documented VS Vital Signs Date Time Temp Pulse Resp B/P (MAP) Pulse Ox O2 Delivery O2 Flow Rate FiO2 06/28/17 11:06 99.1 85 18 133/103 (113) 97 Room Air Orders Orders Ankle, Complete ([id number]) (06/28/17 ) Oxycodone-Acetamin 5-325 Mg (Percocet (06/28/17 11:45) Ice/Cold Pack (06/28/17 11:46) Mando Bandage (06/28/17 12:30) MDM Medical Decision Making Medical Screen Exam Complete: Yes Emergency Medical Condition: Yes Medical Record Reviewed: Yes Interpretation(s) Vital Signs Date Time Temp Pulse Resp B/P (MAP) Pulse Ox O2 Delivery O2 Flow Rate FiO2 06/28/17 11:06 99.1 85 18 133/103 (113) 97 Room Air Differential Diagnosis ankle fracture vs sprain Narrative Course 51-year-old male who presents to the ER with c/o of right ankle pain and swelling after he twisted his ankle at home last week. Denies fall, denies trauma to head/neck. Last Impressions Ankle X-Ray 06/28/17 0000 Signed Impressions: Service Date/Time: Wednesday, June 28, 2017 11:30 - CONCLUSION: 1. There is no evidence of acute fracture. Calcaneal spur Colin Thompson MD Patient with no acute fx on xray. Discussed need for rest/ice/elevation. He will follow up with orthopedic surgery as needed or if symptoms worsen or persist. radiology report was given to him at discharge Diagnosis Primary Impression: Ankle sprain Qualified Codes: S93.401A - Sprain of unspecified ligament of right ankle, initial encounter Patient Instructions: Narcotic given in the ED, General Instructions Additional Instructions: Please follow-up with orthopedic surgery as needed or if symptoms worsen or persist Do not drive or operate heavy machinery TAKING narcotic pain medications Rest, ice, elevate your right lower extremity to help decrease swelling Med/Other Pt SpecificInfo: Prescription(s) given Scripts Ibuprofen (Ibuprofen) 600 Mg Tab 600 MG PO Q6H Y for Pain/Inflammation, #40 TAB 0 Refills Prov: Gilda Nesbitt DO 06/28/17 Oxycodone-Acetaminophen (Percocet) 5-325 mg Tab 1 TAB PO Q6H Y for PAIN, #7 TAB 0 Refills Prov: Gilda Nesbitt DO 06/28/17 Disposition: 01 DISCHARGE HOME Condition: Stable Gilda Nesbitt DO Jun 28, 2017 11:51
--- NOTE | 2017-06-28 12:10 | RADRPT ---
EXAM DATE/TIME: 06/28/2017 11:30 [facility] COMPARISON: No previous studies available for comparison. INDICATIONS : Right ankle pain after twisting ankle last week. MEDICAL HISTORY : Hypertension. SURGICAL HISTORY : None. ENCOUNTER: Initial ACUITY: 1 week PAIN SCORE: 10/10 LOCATION: Right lateral ankle. FINDINGS: Three view exam was performed of the right ankle. The bony structures are in normal alignment. No e vidence of fracture, dislocation, or soft tissue swelling. The ankle mortise is intact. No radiopaq ue foreign bodies are seen. Bony mineralization is normal. A posterior calcaneal spur is present. CONCLUSION: 1. There is no evidence of acute fracture. Calcaneal spur Colin Thompson MD on June 28, 2017 at 12:08 Board Certified Radiologist. This report was verified electronically.
[2017-06-28] MEDS ORDERED: PERC5TAB12 PO (12:35)
[2017-06-28] MEDS ORDERED: IBUP-232 PO (12:35)
== END 2017-06-28 13:07 | disposition home or self-care (01) ==
LOC: NEPD 11:03
DX: S93.401A Sprain of unspecified ligament of right ankle, initial encounter (principal); M77.31 Calcaneal spur, right foot; K21.9 Gastro-esophageal reflux disease without esophagitis; M10.9 Gout, unspecified; I10 Essential (primary) hypertension; X50.1XXA Overexertion from prolonged static or awkward postures, initial encounter; Z86.73 Personal history of transient ischemic attack (TIA), and cerebral infarction without residual deficits; Z79.899 Other long term (current) drug therapy
CPT/HCPCS: 73610; 99285

== ENCOUNTER 2017-07-23 06:41 | Emergency (ER) | payer OTHER ==
[~2017-07-23] VITALS: Ht 165.1 cm; Wt 102.4 kg
[~2017-07-23 06:41] MED LIST changes: +IBUP-232 PO; +PERC5TAB12 PO; -TIZA4CAP3 PO
[2017-07-23 06:48] VITALS: BP 135/82; PULSE 70; RESP 22; TEMP 97.5; O2SAT 100
[2017-07-23] MEDS ORDERED: ACETAMINOPHEN/HYDROcodone 325 MG/5 MG TAB PO ONE (07:00)
[2017-07-23] MEDS ORDERED: ALLO100T PO (07:05)
[2017-07-23] MEDS ORDERED: FURO1TAB62 PO (07:05)
--- NOTE | 2017-07-23 07:05 | PD ---
HPI . Toe pain Chief Complaint: toe pain Time Seen by Provider: 06:56 Travel History International Travel<30 days: No Contact w/Intl Traveler<30days: No History of Present Illness HPI Patient presents with a chief complaint of left great toe pain. Onset was 2-3 days ago. He states that he inadvertently struck his left great toe against the sofa. He reports throbbing pain since that time which is getting progressively worse. Pain is exacerbated by walking. Pain is improved by ibuprofen. Additionally, this patient does have a history of gout. PFSH Past Medical History Hx Anticoagulant Therapy: No Blood Disorders: No Anxiety: No Depression: No Heart Rhythm Problems: No Cancer: No Cardiac Catheterization: No Cardiovascular Problems: Yes (neg stress test recently. 2016) High Cholesterol: No Chest Pain: Yes Congestive Heart Failure: No Cerebrovascular Accident: Yes Diabetes: No Diminished Hearing: No Endocrine: No Gastrointestinal Disorders: Yes GERD: Yes Gout: Yes Genitourinary: No Headaches: Yes Heparin Induced Thrombocytopen: No Hypertension: Yes Immune Disorder: No Implanted Vascular Access Dvce: No Musculoskeletal: No Neurologic: Yes Psychiatric: No Reproductive: No Respiratory: No Immunizations Current: Yes Migraines: No Myocardial Infarction: No Renal Failure: No Seizures: No Past Surgical History Coronary Artery Bypass Graft: No Other Surgery: No Social History Alcohol Use: No Tobacco Use: No Substance Use: No Allergies-Medications (Allergen,Severity, Reaction): Coded Allergies: No Known Allergies (Verified Adverse Reaction, Unknown, 06/28/17) Reported Meds & Prescriptions Reported Meds & Active Scripts Active Ibuprofen 600 Mg Tab 600 Mg PO Q6H PRN Reported Allopurinol 100 Mg Tab 100 Mg PO DAILY Lasix (Furosemide) 20 Mg Tab 5 Mg PO DAILY Amlodipine (Amlodipine Besylate) 5 Mg Tab 5 Mg PO DAILY Review of Systems Except as stated in HPI: all other systems reviewed are Neg Physical Exam Narrative GENERAL: Awake and alert and in no acute distress. SKIN: Warm and dry. Normal color and temperature. HEAD: Normocephalic/atraumatic. EYES: Pupils are equal. Extraocular movements are intact. NECK: Normal range of motion. CARDIOVASCULAR: Regular rate and rhythm. RESPIRATORY: Nonlabored respirations. MUSCULOSKELETAL: Left great toe has a normal appearance. There is no bruising, swelling, deformity or joint swelling. However, it is exquisitely tender diffusely. NEUROLOGICAL: Nonfocal. PSYCHIATRIC: Appropriate mood and affect. Data Data Last Documented VS Vital Signs Date Time Temp Pulse Resp B/P (MAP) Pulse Ox O2 Delivery O2 Flow Rate FiO2 07/23/17 06:48 97.5 70 22 135/82 (99) 100 Orders Orders Toe (Min 2vws) (07/23/17 07:00) Acetamin-Hydrocod 325-5 Mg ([place] 5-325 (07/23/17 07:00) MDM Medical Decision Making Medical Screen Exam Complete: Yes Emergency Medical Condition: Yes Differential Diagnosis Differential diagnosis of extremity trauma includes but is not limited to fracture, sprain or strain, dislocation, contusion Narrative Course This patient presents for the evaluation of pain of the left great toe. He does report trauma prior to the onset of the pain. However, he does have a history of gout. I will give him a [place]. X-ray is pending. X-ray>>Left great toe is intact. Diagnosis Primary Impression: Contusion Qualified Codes: S90.112A - Contusion of left great toe without damage to nail , initial encounter Patient Instructions: Contusion in Adults (DC), General Instructions Med/Other Pt SpecificInfo: Prescription(s) given Scripts Acetaminophen-Codeine (Tylenol-Codeine #3) 300-30 mg Tab 1 TAB PO Q4H Y for PAIN, #12 TAB 0 Refills Prov: Yuridia Parker MD 07/23/17 Disposition: 01 DISCHARGE HOME Condition: Stable Yuridia Parker MD Jul 23, 2017 07:05
--- NOTE | 2017-07-23 07:44 | RADRPT ---
EXAM DATE/TIME: 07/23/2017 07:31 [facility] COMPARISON: No previous studies available for comparison. INDICATIONS : Left great toe pain. Patient hit left toe on furniture. MEDICAL HISTORY : None. SURGICAL HISTORY : None. ENCOUNTER: Initial ACUITY: 2 days PAIN SCORE: 8/10 LOCATION: Left great toe. FINDINGS: Examination of the first digit of the left foot demonstrates no evidence of fracture or dislocation. No radiopaque foreign bodies are seen. The soft tissues are intact. CONCLUSION: Left great toe is intact. Cassius Lamas MD on July 23, 2017 at 7:42 Board Certified Radiologist. This report was verified electronically.
[2017-07-23] MEDS ORDERED: TYLETAB34 PO (07:48)
== END 2017-07-23 08:00 | disposition home or self-care (01) ==
LOC: PHED 06:41
DX: S90.112A Contusion of left great toe without damage to nail, initial encounter (principal); I10 Essential (primary) hypertension; W22.03XA Walked into furniture, initial encounter; Y92.009 Unspecified place in unspecified non-institutional (private) residence as the place of occurrence of the external cause
CPT/HCPCS: 73660; 99283

== ENCOUNTER 2017-11-07 10:15 | Emergency (ER) | payer OTHER ==
[~2017-11-07] VITALS: Ht 172.7 cm; Wt 102.5 kg
[~2017-11-07 10:15] MED LIST changes: +ALLO100T PO; +FURO1TAB62 PO; -PERC5TAB12 PO; +TYLETAB34 PO
[2017-11-07 10:22] VITALS: BP 132/74; PULSE 61; RESP 16; TEMP 98.6; O2SAT 99
[2017-11-07] MEDS ORDERED: LABE100T2 PO (10:36)
[2017-11-07] MEDS ORDERED: TORS5TAB2 PO (10:36)
--- NOTE | 2017-11-07 11:30 | PD ---
HPI Chief Complaint: Musculoskeletal Complaint Time Seen by Provider: 10:34 Travel History International Travel<30 days: No Contact w/Intl Traveler<30days: No Traveled to known affect area: No History of Present Illness HPI 52-year-old male here with right-sided neck and shoulder pain 3 days. He reports he fell approximately 2 months ago and believes that may be the source of pain. Pain is localized to the right shoulder and nonradiating. Symptom severity is moderate. Worse with range of motion of the shoulder and relieved with rest. Denies paresthesia or weakness of the extremity. Denies decreased range of motion of the neck. PFSH Past Medical History Hx Anticoagulant Therapy: No Blood Disorders: No Anxiety: No Depression: No Heart Rhythm Problems: No Cancer: No Cardiac Catheterization: No Cardiovascular Problems: Yes (neg stress test recently. 2017) High Cholesterol: No Chest Pain: Yes Congestive Heart Failure: No Cerebrovascular Accident: Yes Diabetes: No Diminished Hearing: No Endocrine: No Gastrointestinal Disorders: Yes GERD: Yes Gout: Yes Genitourinary: No Headaches: Yes Heparin Induced Thrombocytopen: No Hypertension: Yes Immune Disorder: No Implanted Vascular Access Dvce: No Musculoskeletal: No Neurologic: Yes Psychiatric: No Reproductive: No Respiratory: No Immunizations Current: Yes Migraines: No Myocardial Infarction: No Renal Failure: No Seizures: No Past Surgical History Surgical History: No Previous Surgery Coronary Artery Bypass Graft: No Other Surgery: No Family History Family Myocardial Infarction: Yes Social History Alcohol Use: No Tobacco Use: No Substance Use: No Allergies-Medications (Allergen,Severity, Reaction): Coded Allergies: No Known Allergies (Verified Adverse Reaction, Unknown, 11/07/17) Reported Meds & Prescriptions Reported Meds & Active Scripts Active Reported Torsemide 5 Mg Tab 5 Mg PO DAILY Labetalol (Labetalol HCl) 100 Mg Tab 100 Mg PO BID Amlodipine (Amlodipine Besylate) 5 Mg Tab 5 Mg PO DAILY Review of Systems Except as stated in HPI: all other systems reviewed are Neg General / Constitutional: No: Fever Eyes: No: Visual changes HENT: No: Headaches Cardiovascular: No: Chest Pain or Discomfort Respiratory: No: Shortness of Breath Gastrointestinal: No: Abdominal Pain Genitourinary: No: Dysuria Physical Exam Narrative GENERAL: Alert and well-appearing 52-year-old male SKIN: Warm and dry. HEAD: Normocephalic. EYES: No scleral icterus. No injection or drainage. NECK: Supple, trachea midline. No midline spine tenderness. Patient can freely move the neck. +ttp right trapezius muscle. CARDIOVASCULAR: Regular rate and rhythm without murmurs, gallops, or rubs. RESPIRATORY: Breath sounds equal bilaterally. No accessory muscle use. GASTROINTESTINAL: Abdomen soft, non-tender, nondistended. MUSCULOSKELETAL: No cyanosis, or edema. Right upper extremity:+ttp proximal humerus and posterior shoulder. Full range of motion but has pain with forward extension and external rotation of the shoulder. Palpable distal pulses. Normal sensation. Brisk cap refill. Equal hand grasp. BACK: Nontender without obvious deformity. No CVA tenderness. Data Data Last Documented VS Vital Signs Date Time Temp Pulse Resp B/P (MAP) Pulse Ox O2 Delivery O2 Flow Rate FiO2 11/07/17 10:22 98.6 61 16 132/74 (93) 99 Orders Orders Shoulder, Limited(2vws) (11/07/17 ) [facility] Medical Decision Making Medical Screen Exam Complete: Yes Emergency Medical Condition: Yes Differential Diagnosis Trapezius muscle spasm, cervical radiculopathy, rotator cuff injury, shoulder fracture/dislocation Narrative Course 52-year-old male here with right-sided trapezius muscle spasm and right shoulder pain. He is well-appearing. X-rays negative for fracture. Patient will be treated for muscle spasm. Return precautions were discussed. Patient verbalized understanding and agrees plan Diagnosis Primary Impression: Shoulder pain, right Qualified Codes: M25.511 - Pain in right shoulder Referrals: Primary Care Physician Additional Instructions: Medication as directed. Follow up with your primary doctor. Return if he develop new or worsening symptoms. Scripts Tramadol (Ultram) 50 Mg Tab 50 MG PO Q6H Y for PAIN, #10 TAB 0 Refills Prov: Lanie Patterson 11/07/17 Methocarbamol (Robaxin) 750 Mg Tab 750 MG PO QID for Muscle Spasm, #15 TAB 0 Refills Prov: Lanie Patterson 11/07/17 Disposition: 01 DISCHARGE HOME Condition: Stable Lanie Patterson Nov 07, 2017 11:30
[2017-11-07] MEDS ORDERED: ROBA750T PO (11:35)
[2017-11-07] MEDS ORDERED: TRAM50 PO (11:35)
--- NOTE | 2017-11-07 11:44 | RADRPT ---
EXAM DATE/TIME: 11/07/2017 10:42 [facility] COMPARISON: No previous studies available for comparison. INDICATIONS : Right shoulder/neck pain with no known injury. MEDICAL HISTORY : Hypertension. Gastroesophageal reflux disease. Gout. CVA. SURGICAL HISTORY : ENCOUNTER: Initial ACUITY: 3 days PAIN SCORE: 10/10 LOCATION: Right shoulder FINDINGS: Two view examination of the right shoulder demonstrates no evidence of fracture or dislocation. The glenohumeral and acromioclavicular joints are maintained. Bony mineralization is normal. CONCLUSION: No acute disease. Pratik Vargas MD on November 07, 2017 at 11:42 Board Certified Radiologist. This report was verified electronically.
== END 2017-11-07 11:45 | disposition home or self-care (01) ==
LOC: PHEFT 10:15
DX: M25.511 Pain in right shoulder (principal); I10 Essential (primary) hypertension; K21.9 Gastro-esophageal reflux disease without esophagitis; Z86.73 Personal history of transient ischemic attack (TIA), and cerebral infarction without residual deficits
CPT/HCPCS: 73030; 99283

== ENCOUNTER 2017-11-12 10:04 | Emergency (ER) | payer OTHER ==
[~2017-11-12] VITALS: Ht 172.7 cm; Wt 101.0 kg
[~2017-11-12 10:04] MED LIST changes: -ALLO100T PO; -FURO1TAB62 PO; -IBUP-232 PO; +LABE100T2 PO; +ROBA750T PO; +TORS5TAB2 PO; +TRAM50 PO; -TYLETAB34 PO
[2017-11-12 10:06] VITALS: BP 147/81; PULSE 64; RESP 16; TEMP 98.4; O2SAT 98
[2017-11-12] MEDS ORDERED: [UNRECOGNIZED DRUG - OTHER] (10:33)
[2017-11-12] MEDS ORDERED: AMLO10TA2 PO (10:33)
[2017-11-12] MEDS ORDERED: [UNRECOGNIZED DRUG - OTHER] PO (10:33)
--- NOTE | 2017-11-12 11:08 | PD ---
HPI Chief Complaint: ENT Complaint Time Seen by Provider: 10:48 Travel History International Travel<30 days: No Contact w/Intl Traveler<30days: No Traveled to known affect area: No History of Present Illness HPI 52-year-old male presents emergency department for evaluation of a hoarse voice and sore throat that started 3 weeks ago. 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 Says that normally preaches on Saturday and the rattling in his throat is gone within 1-2 days. Says this is been persistent and is concerned there is something serious going on. Patient denies fever, chills. Denies any cough or congestion. Denies nasal discharge. Denies shortness of breath or chest pain. Says that last week he had some gastric reflux and took Zantac however, denies chronic history of reflux. Patient denies any unusual cough that wakes him up at night. Says that he was diagnosed with hypertension however, he has not taken any medication for this. PFSH Past Medical History Hx Anticoagulant Therapy: No Blood Disorders: No Anxiety: No Depression: No Heart Rhythm Problems: No Cancer: No Cardiac Catheterization: No Cardiovascular Problems: Yes (HTN,neg stress test recently. 2017) High Cholesterol: No Chest Pain: Yes Congestive Heart Failure: No Cerebrovascular Accident: Yes Diabetes: No Patient Takes Glucophage: No Diminished Hearing: No Endocrine: No Gastrointestinal Disorders: Yes GERD: Yes Gout: Yes Genitourinary: No Headaches: Yes Heparin Induced Thrombocytopen: No Hypertension: Yes Immune Disorder: No Implanted Vascular Access Dvce: No Musculoskeletal: No Neurologic: Yes Psychiatric: No Reproductive: No Respiratory: No Immunizations Current: Yes Migraines: No Myocardial Infarction: No Renal Failure: No Seizures: No Past Surgical History Surgical History: No Previous Surgery Coronary Artery Bypass Graft: No Other Surgery: No Family History Family Myocardial Infarction: Yes Social History Alcohol Use: No Tobacco Use: No Substance Use: No Allergies-Medications (Allergen,Severity, Reaction): Coded Allergies: No Known Allergies (Verified Adverse Reaction, Unknown, 11/12/17) Reported Meds & Prescriptions Reported Meds & Active Scripts Active Magic Mouthwash Adult Liq (Multi-Ingredient Mouthwash/Gargle) 120 Ml Susp 5 Ml SWISH-SWAL ACHS Each 5mL contains: Nystatin 200,000units, Diphenhydramine 4.25mg, Viscous Lidocaine 10mg, Bui syrup 0.8 mL Ultram (Tramadol HCl) 50 Mg Tab 50 Mg PO Q6H PRN Robaxin (Methocarbamol) 750 Mg Tab 750 Mg PO QID Reported [Terosomide] Unknown Dose [Labatelol] 200 Mg PO BID Amlodipine (Amlodipine Besylate) 10 Mg Tab 10 Mg PO DAILY Torsemide 5 Mg Tab 5 Mg PO DAILY Amlodipine (Amlodipine Besylate) 5 Mg Tab 5 Mg PO DAILY Review of Systems Except as stated in HPI: all other systems reviewed are Neg Physical Exam Narrative GENERAL: Well-nourished, well-developed patient. SKIN: Focused skin assessment warm/dry. HEAD: Normocephalic. EYES: No scleral icterus. No injection or drainage. NECK: Supple, trachea midline. No JVD or lymphadenopathy. THROAT: No pharyngeal injection, exudates, or tonsillar hypertrophy. Airway is patent. CARDIOVASCULAR: Regular rate and rhythm without murmurs, gallops, or rubs. RESPIRATORY: Breath sounds equal bilaterally. No accessory muscle use. GASTROINTESTINAL: Abdomen soft, non-tender, nondistended. No CVA tenderness MUSCULOSKELETAL: No cyanosis, or edema. BACK: Nontender without obvious deformity. No CVA tenderness. Data Data Last Documented VS Vital Signs Date Time Temp Pulse Resp B/P (MAP) Pulse Ox O2 Delivery O2 Flow Rate FiO2 11/12/17 10:06 98.4 64 16 147/81 (103) 98 Orders Orders Ed Discharge Order (11/12/17 11:13) MDM Medical Decision Making Medical Screen Exam Complete: Yes Emergency Medical Condition: Yes Differential Diagnosis Pharyngitis, laryngitis, upper respiratory infection, postnasal drip Narrative Course 52-year-old male presents emergency department for evaluation of a hoarse voice and sore throat that is been present for approximately 3 weeks. Patient says that he [employer] 1 day and the sore throat has been persistent ever since then. He denies any history of gastric reflux, cough, nasal congestion. Says he had some reflux couple days ago and took Zantac without significant relief of his voice. Vital signs are stable. His exam findings are unremarkable except for the hoarse voice. Based off a history and physical, I suspect the patient has gastric reflux. Will prescribe Magic mouthwash to reduce his symptoms of sore throat. Advised that patient needs to follow-up with a primary care physician and in her throat specialist for further evaluation. I reassured patient as I do not believe this was a serious process. Diagnosis Primary Impression: Laryngitis Referrals: Ear / Nose / Throat Specialist Primary Care Physician Additional Instructions: Use medication as prescribed for symptom relief Continue Zantac, omeprazole, or any other antacids daily to reduce her symptoms. Follow-up with an ear, nose, throat specialist for further evaluation of your throat and abnormal voice. Scripts Fxbdaglj-Qiipgaypozytfwo-Feqlciehx Liq (Magic Mouthwash Adult Liq) 120 Ml Susp 5 ML SWISH-SWAL ACHS for Pain Management, #120 ML 0 Refills Each 5mL contains: Nystatin 200,000units, Diphenhydramine 4.25mg, Viscous Lidocaine 10mg, Bui syrup 0.8 mL Prov: Javon Dunlap MD 11/12/17 Disposition: 01 DISCHARGE HOME Condition: Stable Sis Simms Nov 12, 2017 11:08
[2017-11-12] MEDS ORDERED: MAGICADU2 SWISH-SWAL (11:10)
[2017-11-15] MEDS ORDERED: LABE200T2 PO (10:40)
== END 2017-11-12 11:26 | disposition home or self-care (01) ==
LOC: PHEFT 10:04
DX: J04.0 Acute laryngitis (principal); I10 Essential (primary) hypertension
CPT/HCPCS: 99283